=== PATIENT | male | born 1970 | race Caucasian/White ===

== ENCOUNTER 2016-10-21 08:03 | Inpatient (IN) | payer MEDICARE ==
--- NOTE | 2016-10-21 09:10 | XRay Report ---
PORTABLE CHEST INDICATION: Chest pain. COMPARISON: None similar at this institution. FINDINGS: Portable, frontal chest radiograph demonstrates sternotomy wires/post CABG changes and left AICD with dual-chamber leads. Normal cardiomediastinal silhouette. Clear lungs. EKG leads. Intact bones. CONCLUSION: No acute disease, as described. Thank you for the opportunity to participate in this patient's care.
[2016-10-21 09:18] LABS: Eosinophils % (Auto) 3.1 % (0.0-4.3); Hematocrit 43.7 % (35.5-45.6); Hemoglobin 14.8 gm/dl (11.8-15.2); Mean Corpuscular HGB Conc 34 % (32-34); Mean Corpuscular Hemoglobin 32 pg (28-32); Mean Corpuscular Volume 93 fl (84-94); Platelet Count 123 K/mm3 (140-440); Red Blood Count 4.69 M/mm3 (3.65-5.03); Red Cell Distribution Width 13.6 % (13.2-15.2); White Blood Count 4.8 K/mm3 (4.5-11.0)
[2016-10-21 10:04] LABS: Anion Gap 18 mmol/L; BUN/Creatinine Ratio 15.45; Blood Urea Nitrogen 17 mg/dL (9-20); Calcium 8.8 mg/dL (8.4-10.2); Carbon Dioxide 21 mmol/L (22-30); Chloride 102.6 mmol/L (98-107); Glucose 101 mg/dL (75-100); Potassium 3.9 mmol/L (3.6-5.0); Sodium 138 mmol/L (137-145)
[2016-10-21] MEDS ORDERED: ASPIRIN ONE (11:40)
[2016-10-21] MEDS ORDERED: ZOFRAN IV ONE (11:52)
[2016-10-21] MEDS ORDERED: ZOFRAN ONE (11:52)
[2016-10-21] MEDS ORDERED: MORPHINE IV ONE (11:52)
[2016-10-21] MEDS ORDERED: MORPHINE ONE (11:52)
[2016-10-21] MEDS: ASPIRIN PO SCH (11:56)
[2016-10-21] MEDS ORDERED: NITRO-BID 2% TP ONE (11:57)
--- NOTE | 2016-10-21 11:58 | Emergency Department Report ---
HPI - General Chief Complaint: Chest Pain Time Seen by Provider: 10/21/16 09:39 - HPI HPI: History of complaint: Chest pain 46-year-old male presents to ED with chest pain that started last night. Patient states pain is pressure like and radiates to the left on. Patient stated history of coronary artery disease status post stents 7. Patient denies any nausea or vomiting but complains of mild shortness of breath without exertion. Patient denied any alleviating or exacerbating factors. ED Past Medical Hx - Past Medical History Previous Medical History?: Yes Hx Congestive Heart Failure: Yes Hx COPD: Yes - Surgical History Past Surgical History?: Yes Hx Open Heart Surgery: Yes (triple) Hx Internal Defibrillator: Yes Additional Surgical History: L knee - Family History Family history: hypertension - Social History Smoking Status: Current Every Day Smoker Substance Use Type: None ED Review of Systems ROS: Stated complaint: CHEST PAIN Other details as noted in HPI Comment: All other systems reviewed and negative Respiratory: shortness of breath Cardiovascular: chest pain Physical Exam - Physical Exam Vital Signs: Vital Signs 10/21/16 10/21/16 10/21/16 08:13 08:20 08:30 Temperature Pulse Rate 67 62 59 L Respiratory 14 18 15 Rate Blood Pressure 119/79 119/79 O2 Sat by Pulse 99 98 98 Oximetry 10/21/16 10/21/16 10/21/16 08:34 08:40 08:50 Temperature 98.1 F Pulse Rate 64 56 L 69 Respiratory 18 15 19 Rate Blood Pressure 119/79 119/79 119/79 O2 Sat by Pulse 99 98 96 Oximetry 10/21/16 10/21/16 10/21/16 09:00 09:10 09:20 Temperature Pulse Rate 57 L 56 L 53 L Respiratory 13 12 10 L Rate Blood Pressure 110/71 110/71 110/71 O2 Sat by Pulse 95 96 98 Oximetry 10/21/16 10/21/16 10/21/16 09:30 09:40 09:50 Temperature Pulse Rate 52 L 60 57 L Respiratory 14 14 13 Rate Blood Pressure 110/71 110/71 110/71 O2 Sat by Pulse 97 97 96 Oximetry 10/21/16 10/21/16 10/21/16 10:00 10:10 10:20 Temperature Pulse Rate 60 54 L 56 L Respiratory 15 15 15 Rate Blood Pressure 108/70 108/70 108/70 O2 Sat by Pulse 97 97 96 Oximetry 10/21/16 10/21/16 10/21/16 10:30 10:40 10:50 Temperature Pulse Rate 68 63 61 Respiratory 17 14 15 Rate Blood Pressure 108/70 108/70 108/70 O2 Sat by Pulse 95 95 95 Oximetry 10/21/16 10/21/16 11:00 11:13 Temperature Pulse Rate 59 L Respiratory 13 13 Rate Blood Pressure 108/68 O2 Sat by Pulse 95 95 Oximetry Physical Exam: Gen. alert and oriented 3 in no distress Head atraumatic normocephalic Eyes PERR LA EOMI Chest regular rate and rhythm normal S1-S2 lungs clear bilaterally Abdomen soft nondistended Back no point tenderness paravertebral tenderness Neuro no focal deficit. Psych normal mood. ED Course Vital Signs 10/21/16 10/21/16 10/21/16 08:13 08:20 08:30 Temperature Pulse Rate 67 62 59 L Respiratory 14 18 15 Rate Blood Pressure 119/79 119/79 O2 Sat by Pulse 99 98 98 Oximetry 10/21/16 10/21/16 10/21/16 08:34 08:40 08:50 Temperature 98.1 F Pulse Rate 64 56 L 69 Respiratory 18 15 19 Rate Blood Pressure 119/79 119/79 119/79 O2 Sat by Pulse 99 98 96 Oximetry 10/21/16 10/21/16 10/21/16 09:00 09:10 09:20 Temperature Pulse Rate 57 L 56 L 53 L Respiratory 13 12 10 L Rate Blood Pressure 110/71 110/71 110/71 O2 Sat by Pulse 95 96 98 Oximetry 10/21/16 10/21/16 10/21/16 09:30 09:40 09:50 Temperature Pulse Rate 52 L 60 57 L Respiratory 14 14 13 Rate Blood Pressure 110/71 110/71 110/71 O2 Sat by Pulse 97 97 96 Oximetry 10/21/16 10/21/16 10/21/16 10:00 10:10 10:20 Temperature Pulse Rate 60 54 L 56 L Respiratory 15 15 15 Rate Blood Pressure 108/70 108/70 108/70 O2 Sat by Pulse 97 97 96 Oximetry 10/21/16 10/21/16 10/21/16 10:30 10:40 10:50 Temperature Pulse Rate 68 63 61 Respiratory 17 14 15 Rate Blood Pressure 108/70 108/70 108/70 O2 Sat by Pulse 95 95 95 Oximetry 10/21/16 10/21/16 11:00 11:13 Temperature Pulse Rate 59 L Respiratory 13 13 Rate Blood Pressure 108/68 O2 Sat by Pulse 95 95 Oximetry ED Medical Decision Making - Lab Data Result diagrams: 10/21/16 08:54 10/21/16 08:54 Critical care attestation.: If time is entered above; I have spent that time in minutes in the direct care of this critically ill patient, excluding procedure time. ED Disposition Clinical Impression: Chest pain Disposition: OP ADMIT IP TO THIS HOSP Is pt being admited?: Yes Does the pt Need Aspirin: No Condition: Stable Instructions: Chest Pain (ED) Referrals: PRIMARY CARE, [Primary Care Provider] - 3-5 Days
--- NOTE | 2016-10-21 12:33 | Admit Criteria Form ---
Admission Criteria Documentation: CHEST PAIN Clinical Indications for Admission to Inpatient Care (Place 'X' for any and all applicable criteria): Admission is indicated for chest pain and ANY ONE of the following(1)(2)(3)(4)(5 ): [ ]I. Angina with acute coronary syndrome (Also use Myocardial Infarction or Angina guideline) [ ]II. Hemodynamic instability [X ]III. Angina needing acute intervention as indicated by ALL of the following (11)(12): [ ]a) Unstable angina is present as indicated by angina that is ANY ONE of the following: [ ]i) New onset [ ]ii) Nocturnal [ ]iii) Prolonged at rest [ ]iv) Progressive [X]b) Angina warrants acute intervention as indicated by ANY ONE of the following: [ ]i) Recurrent angina (e.g, not responding as previously to treatment) [ ]ii) Angina at rest or with low-level activities despite initial medical therapy [ ]iii) New or presumably new ST-segment depression on ECG [ ]iv) Signs or symptoms of heart failure (eg, dyspnea, pulmonary edema) [ ]v) New or worsening mitral regurgitation [ ]vi) Hemodynamic instability [ ]vii) Dangerous arrhythmia (eg, sustained ventricular tachycardia) [ ]viii) History of percutaneous coronary intervention within 6 months [X]ix) History of coronary artery bypass graft surgery [ ]x) SHIMON risk score of 2 or greater[A] [ ]xi) History of Diabetes(14) [ ]xii) High-risk cardiac ischemia findings on noninvasive testing (e.g, echocardiogram, treadmill testing, nuclear scan) [ ]xiii) Chronic renal insufficiency (ie, estimated GFR less than 60 mL/min/1.732m) [ ]xiv) Left ventricular ejection fraction less than 40% [ ]IV. Evidence of AK (eg, cardiac biomarkers positive, ST-segment elevation on ECG) also use Myocardial Infarction Criteria Form. [ ]V. Pulmonary edema [ ]. Respiratory distress [ ]VII. Chest pain indicative of serious diagnosis other than coronary artery disease (eg, aortic dissection) [ ]VIII. Contraindications and/or Inappropriate clinical situations for Observational Care in patients with Chest Pain, when ANY ONE of the following is required: [ ]a) Patient with risk factor for pulmonary embolism, acute coronary syndrome and myocardial infarction (18) [ ]b) Patient with Pulmonary embolism require an average LOS of 4.3 days, therefore emergency department observation management is inappropriate 18,23 [ ]c) Painful condition/s in the elderly, have the highest rate of recidivism after emergency department observation management (10.8%) 20,21,22 [ ]d) Elevated cardiac biomarker requires intensive and exhaustive care (19) [ ]IX. General contraindications and/or Inappropriate clinical situations for Observational Care in patients with Chest Pain, when ANY ONE of the following is required: [ ]a) Prediction of prolongation of LOS based on ANY ONE of the following may be considered as a contraindication for observational care 2, 3, 4, 5, 6, 7, 8, 9, 10, 11 [ ]i) Age > 65 yrs. [ ]ii) Patient arriving by ambulance [ ]iii) Patient with high acuity [ ]iv) Patient requiring vital sign monitoring [ ]v) Patient on IV medication [ ]b) Systolic blood pressures 180mmHg 3,12 [ ]c) Patient with altered mental status including delirium and other alteration of consciousness, (3) [ ]d) Patient whose discharge disposition will be to a fdc home or rehabilitation home should not be managed in Emergency Department Observation Unit. CMS rule requires 3 days hospital stay before such placement. 3,13 [ ]e) Patient with failure to thrive due to broad array of etiologies 3,16,17 [ ]f) Inability to ambulate 3,14 Extended stay beyond goal length of stay may be needed for (1)(28): [ ]a) Specific condition diagnosed after evaluation (eg, pulmonary embolism, aortic dissection) [ ]b) Unstable angina [ ]c) Continued suspicion of acute coronary syndrome with inability to complete needed cardiac evaluation (eg, patient clinically unable to undergo stress testing) [ ]d) Myocardial infarction (Contents from ANGINA and CHEST PAIN clinical indications for admission to inpatient care have been integrated in this form) The original [facility] content created by [employer] has been revised. The portions of the content which have been revised are identified through the use of italic text or in bold, and [facility] [employer] has neither reviewed nor approved the modified material. All other unmodified content is copyright [facility]. Please see references footnoted in the original [facility] edition 2016 Admission Criteria Met: Yes
--- NOTE | 2016-10-21 12:40 | History and Physical Report ---
History of Present Illness Date of examination: 10/21/16 Chief complaint: Chest pain History of present illness: 46-year-old man with past medical history significant for systolic CHF , COPD, depression, hypertension, hyperlipidemia, CAD status post CABG, multiple stents presented to the emergency department complaining of left-sided chest pain that started 2 days ago. Patient said the pain is sharp, 10 out of 10 in intensity, intermittent, with radiation to the left arm. It is associated with shortness of breath, diaphoresis, palpitation. Patient denied leg swelling, but admitted for dry cough. Patient said he didn't take all his medications for the last 3 days. She said she has been [employer] for the last 4 weeks. Patient said his ejection fraction was 5% and he has a AICD. REVIEW OF SYSTEMS: GENERAL: no weight change, no fatigue, no fever HEAD: no head ache EYES: no blurry vision, no acute visual loss EARS: no hearing loss, no discharge, no earache NOSE: no stuffiness, no sneezing, no discharge MOUTH, THROAT AND NECK: no bleeding gums, no sore throat, no swollen neck CARDIAC: + palpitations, + dyspnea on exertion, no orthopnea, no PND, no edema, + chest pain RESPIRATORY: + shortness of breath, no wheeze, dry cough, no sputum, no hemoptysis, no asthma GI: no decreased appetite, no nausea, no vomiting, no dysphagia, no diarrhea, no constipation, no abdominal pain URINARY: no change in frequency, no urgency, no polyuria, no hematuria, no incontinence MUSCULOSKELETAL: no muscle weakness, no pain, no joint stiffness NEUROLOGIC: no loss of sensation/numbness, no tingling, no tremors, no weakness/ paralysis HEMATOLOGIC: no anemia, no easy bruising SKIN: no rashes ENDOCRINE: no heat/cold intolerance, no polyuria, no polydipsia, no thyroid problems, no diabetes PSYCHIATRIC: no anxiety, + depression, no suicidal ideations Past History Past Medical History: CAD, COPD, heart failure, hypertension Past Surgical History: CABG, total knee replacement Social history: smoking (4 cigaretes a day), full code. denies: alcohol abuse, prescription drug abuse, IV drug use Family history: CAD (father), cancer (mother and brother) Medications and Allergies Allergies Allergy/AdvReac Type Severity Reaction Status Date / Time No Known Allergies Allergy Unverified 10/21/16 08:38 Active Meds: Active Medications Aspirin (Aspirin) 325 mg PO QDAY [facility] Last Admin: 10/21/16 11:56 Dose: Not Given Aspirin (Baby Aspirin) 81 mg PO QDAY [facility] Atorvastatin Calcium (Lipitor) 40 mg PO QHS [facility] Morphine Sulfate (Morphine) 2 mg IV Q4H PRN PRN Reason: Pain, Moderate (4-6) Exam - Physical Exam Narrative exam: Not in cardiopulmonary distress. The patient appeared well nourished and normally developed. Vital signs as documented. Head exam is unremarkable. No scleral icterus . Neck is without jugular venous distension, thyromegaly, or carotid bruits. Lungs are clear to auscultation. Cardiac exam reveals regular rate and Rhythm. Abdominal exam reveals normal bowel sounds, no masses, no organomegaly. Extremities are nonedematous and both femoral and pedal pulses are normal. 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 No focal weakness. - Constitutional Vitals: Temp Pulse Resp BP Pulse Ox 98.1 F 59 L 16 108/68 89 10/21/16 08:34 10/21/16 11:40 10/21/16 11:40 10/21/16 11:40 10/21/16 11:40 Results - Labs CBC & Chem 7: 10/21/16 08:54 10/21/16 08:54 Labs: Laboratory Last Values WBC 4.8 K/mm3 (4.5-11.0) 10/21/16 08:54 RBC 4.69 M/mm3 (3.65-5.03) 10/21/16 08:54 Hgb 14.8 gm/dl (11.8-15.2) 10/21/16 08:54 Hct 43.7 % (35.5-45.6) 10/21/16 08:54 MCV 93 fl (84-94) 10/21/16 08:54 MCH 32 pg (28-32) 10/21/16 08:54 MCHC 34 % (32-34) 10/21/16 08:54 RDW 13.6 % (13.2-15.2) 10/21/16 08:54 Plt Count 123 K/mm3 (140-440) L 10/21/16 08:54 Lymph % (Auto) 11.6 % (13.4-35.0) L 10/21/16 08:54 Major % (Auto) 8.1 % (0.0-7.3) H 10/21/16 08:54 Eos % (Auto) 3.1 % (0.0-4.3) 10/21/16 08:54 Baso % (Auto) 1.0 % (0.0-1.8) 10/21/16 08:54 Lymph # 0.6 K/mm3 (1.2-5.4) L 10/21/16 08:54 Major # 0.4 K/mm3 (0.0-0.8) 10/21/16 08:54 Eos # 0.1 K/mm3 (0.0-0.4) 10/21/16 08:54 Baso # 0.0 K/mm3 (0.0-0.1) 10/21/16 08:54 Seg Neutrophils % 76.2 % (40.0-70.0) H 10/21/16 08:54 Seg Neutrophils # 3.6 K/mm3 (1.8-7.7) 10/21/16 08:54 Sodium 138 mmol/L (137-145) 10/21/16 08:54 Potassium 3.9 mmol/L (3.6-5.0) 10/21/16 08:54 Chloride 102.6 mmol/L (98-107) 10/21/16 08:54 Carbon Dioxide 21 mmol/L (22-30) L 10/21/16 08:54 Anion Gap 18 mmol/L 10/21/16 08:54 BUN 17 mg/dL (9-20) 10/21/16 08:54 Creatinine 1.1 mg/dL (0.8-1.5) 10/21/16 08:54 Estimated GFR > 60 ml/min 10/21/16 08:54 BUN/Creatinine Ratio 15.45 % 10/21/16 08:54 Glucose 101 mg/dL (75-100) H 10/21/16 08:54 Calcium 8.8 mg/dL (8.4-10.2) 10/21/16 08:54 Troponin T < 0.010 ng/mL (0.00-0.029) 10/21/16 08:54 NT-Pro-B Natriuret Pep 1030 pg/mL (0-450) H 10/21/16 08:54 - Imaging and Cardiology EKG: image reviewed (No ST elevation) Chest x-ray: image reviewed (Normal CXR) Assessment and Plan Assessment and plan: Chest pain CAD status post CABG, multiple stents Chronic systolic CHF with ejection fraction of 5 Hypertension Hyperlipidemia COPD - first set of cardiac enzymes are negative will do mores sets - EKG no ST elevation - Cardiology consult placed - We'll resume appropriate medications - Thallium stress test DVT prophylaxis - Lovenox Disposition - Admit to telemetry floor. Advance Directives: Yes VTE prophylaxis?: Chemical Plan of care discussed with patient/family: Yes
[2016-10-21 13:07] LABS: INR 1.01 (0.87-1.13)
[2016-10-21] MEDS: MORPHINE IV PRN ×3 (14:00→21:07)
[2016-10-21] MEDS: LOVENOX SUB-Q SCH (14:11)
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
[2016-10-22] MEDS: MORPHINE IV PRN ×5 (01:19→20:52)
[2016-10-22 05:49] LABS: Hematocrit 47.3 % (35.5-45.6); Hemoglobin 15.6 gm/dl (11.8-15.2); Mean Corpuscular HGB Conc 33 % (32-34); Mean Corpuscular Hemoglobin 31 pg (28-32); Mean Corpuscular Volume 94 fl (84-94); Red Blood Count 5.01 M/mm3 (3.65-5.03); Red Cell Distribution Width 13.8 % (13.2-15.2); White Blood Count 4.4 K/mm3 (4.5-11.0)
[2016-10-22 05:54] LABS: Platelet Count 110 K/mm3 (140-440)
[2016-10-22 06:50] LABS: Basophils % (Manual) 0 % (0.0-1.8); Blastocytes % (Manual) 0 %
[2016-10-22 06:51] LABS: Anisocytosis Few; Diff Status Complete; Giant Platelets Rare; Platelet Estimate Consistent w Auto
[2016-10-22] MEDS ORDERED: LEXISCAN IV ONE ×2 (08:57→09:04)
--- NOTE | 2016-10-22 09:47 | Progress Note ---
Assessment and Plan Assessment: Chest pain, atypical - Nj negative for AMI; CXR with NAF; reproducible with palpation, deep inspiration, and position changes CAD, s/p CABG and PCI ? CMP, AICD in situ Sinus bradycardia HTN HLP COPD Anxiety / depression - per primary Tobacco use - cessation encouraged Plan: s/p lexiscan MPI stress test this AM which was negative for ischemia. Await echo. Cont home ASA, statin, and lasix. Cont to hold home BB in setting of current sinus bradycardia and borderline hypotension. Attempt to obtain medical records from [facility] in [place], [place], where pt reports he has had the majority of his cardiac evaluation and management. The patient has been seen in conjunction with Dr. Claros who agrees with the assessment and plan of care. Subjective Date of service: 10/22/16 Principal diagnosis: chest pain Interval history: Pt seen in stress lab. no complaints. VSS. Objective Last Vital Signs Temp 97.7 F 10/22/16 07:35 Pulse 50 L 10/22/16 07:35 Resp 18 10/22/16 07:35 BP 109/57 10/22/16 07:35 Pulse Ox 94 10/22/16 07:35 - Physical Examination HEENT: Positive: PERRL, Normocephaly, Mucus Membranes Moist Neck: Positive: neck supple, trachea midline Cardiac: Positive: Reg Rate and Rhythm, S1/S2 Lungs: Positive: clear to auscultation Neuro: Positive: Grossly Intact, Cranial Nerve 2-12 Intact Abdomen: Positive: Unremarkable, Soft, Active Bowel Sounds. Negative: Tender Skin: Positive: Clear. 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
[2016-10-22] MEDS: ASPIRIN PO SCH (10:50)
[2016-10-22] MEDS: LOVENOX SUB-Q SCH (10:50)
[2016-10-22] MEDS: LASIX PO SCH (10:50)
--- NOTE | 2016-10-22 14:33 | Progress Note ---
Assessment and Plan Assessment and plan: Patient is a 46-year-old man history of premature coronary artery disease with CABG, hypertension, chronic systolic heart failure with permanent pacemaker, major depressive disorder and COPD who presents with left-sided chest pains. -Left-sided chest pain: Cardiac workup in progress for cardiology -Chronic systolic heart failure, chest x-ray shows no acute findings: Continue present management -Bradycardia: Hold beta blockers -Coronary artery disease with cardiac stents: Aspirin and low-salt diet, restart Plavix -Hypertension related to heart disease: Continue home medicine except beta patricia, closely follow -Patient depressive disorder: Reconcile his home Zoloft and Risperdal -DVT prophylaxis: sq lovenox Full code Disposition: Continue inpatient care, discharge once cleared by cardiology History Interval history: Patient seen and examined. Follow up on current diagnosis/chest pain and left side which is still present. Overnight uneventful. No sob, n/v or severe headaches. Imaging, old records, testing, labs, nursing notes reviewed. Hospitalist Physical - Physical exam Narrative exam: GEN: WDWN, NAD, AWAKE, ALERT, ORIENTATED x 3 HEENT: NCAT, PERRL, EOMI, OP CLEAR NECK: SUPPLE, NO THYROMEGALY, NO JVD, NO LAD CVS: RRR, NORMAL S1S2 LUNGS/CHEST: CTA B, NORMAL CHEST EXPANSION B, GOOD AIR ENTRY B ABD: SOFT, NTND, GBS, NO REBOUND OR GUARDING EXT/SKIN: NO SIGNIFICANT EDEMA OR RASH MSK: FROM X 4 EXTREMITIES NEURO: CN 2-12 GROSSLY INTACT, NO FOCAL DEFICITS PSY: CALM - Constitutional Vitals: Temp Pulse Resp BP Pulse Ox 97.9 F 50 L 18 113/57 98 10/22/16 11:30 10/22/16 11:30 10/22/16 11:30 10/22/16 11:30 10/22/16 11:30 General appearance: Present: no acute distress Results - Labs CBC & Chem 7: 10/22/16 05:08 10/21/16 08:54 Labs: Laboratory Last Values WBC 4.4 K/mm3 (4.5-11.0) L 10/22/16 05:08 RBC 5.01 M/mm3 (3.65-5.03) 10/22/16 05:08 Hgb 15.6 gm/dl (11.8-15.2) H 10/22/16 05:08 Hct 47.3 % (35.5-45.6) H 10/22/16 05:08 MCV 94 fl (84-94) 10/22/16 05:08 MCH 31 pg (28-32) 10/22/16 05:08 MCHC 33 % (32-34) 10/22/16 05:08 RDW 13.8 % (13.2-15.2) 10/22/16 05:08 Plt Count 110 K/mm3 (140-440) L 10/22/16 05:08 Lymph % (Auto) [place] 10/22/16 05:08 [place] % (Auto) Candy Dipper 10/22/16 05:08 Eos % (Auto) [place] 10/22/16 05:08 Baso % (Auto) [place] 10/22/16 05:08 Lymph # [place] 10/22/16 05:08 [place] # Candy Dipper 10/22/16 05:08 Eos # [place] 10/22/16 05:08 Baso # [place] 10/22/16 05:08 Add Manual Diff Complete 10/22/16 05:08 Total Counted 100 10/22/16 05:08 Seg Neutrophils % [place] 10/22/16 05:08 Seg Neuts % (Manual) 70.0 % (40.0-70.0) 10/22/16 05:08 Band Neutrophils % 1.0 % 10/22/16 05:08 Lymphocytes % (Manual) 19.0 % (13.4-35.0) 10/22/16 05:08 Reactive Lymphs % (Man) 0 % 10/22/16 05:08 Monocytes % (Manual) 2.0 % (0.0-7.3) 10/22/16 05:08 Eosinophils % (Manual) 8.0 % (0.0-4.3) H 10/22/16 05:08 Basophils % (Manual) 0 % (0.0-1.8) 10/22/16 05:08 Metamyelocytes % 0 % 10/22/16 05:08 Myelocytes % 0 % 10/22/16 05:08 Promyelocytes % 0 % 10/22/16 05:08 Blast Cells % 0 % 10/22/16 05:08 Nucleated RBC % Not Reportable 10/22/16 05:08 Seg Neutrophils # [place] 10/22/16 05:08 Seg Neutrophils # Man 3.1 K/mm3 (1.8-7.7) 10/22/16 05:08 Band Neutrophils # 0.0 K/mm3 10/22/16 05:08 Lymphocytes # (Manual) 0.8 K/mm3 (1.2-5.4) L 10/22/16 05:08 Abs React Lymphs (Man) 0.0 K/mm3 10/22/16 05:08 Monocytes # (Manual) 0.1 K/mm3 (0.0-0.8) 10/22/16 05:08 Eosinophils # (Manual) 0.4 K/mm3 (0.0-0.4) 10/22/16 05:08 Basophils # (Manual) 0.0 K/mm3 (0.0-0.1) 10/22/16 05:08 Metamyelocytes # 0.0 K/mm3 10/22/16 05:08 Myelocytes # 0.0 K/mm3 10/22/16 05:08 Promyelocytes # 0.0 K/mm3 10/22/16 05:08 Blast Cells # 0.0 K/mm3 10/22/16 05:08 WBC Morphology Not Reportable 10/22/16 05:08 Hypersegmented Neuts Not Reportable 10/22/16 05:08 Hyposegmented Neuts Not Reportable 10/22/16 05:08 Hypogranular Neuts Not Reportable 10/22/16 05:08 Smudge Cells Not Reportable 10/22/16 05:08 Toxic Granulation Not Reportable 10/22/16 05:08 Toxic Vacuolation Not Reportable 10/22/16 05:08 Dohle Bodies Not Reportable 10/22/16 05:08 Pelger-Huet Anomaly Not Reportable 10/22/16 05:08 Saleem Rods Not Reportable 10/22/16 05:08 Platelet Estimate Consistent w auto 10/22/16 05:08 Clumped Platelets Not Reportable 10/22/16 05:08 Plt Clumps, EDTA Not Reportable 10/22/16 05:08 Large Platelets Not Reportable 10/22/16 05:08 Giant Platelets Rare 10/22/16 05:08 Platelet Satelliting Not Reportable 10/22/16 05:08 Plt Morphology Comment Not Reportable 10/22/16 05:08 RBC Morphology Not Reportable 10/22/16 05:08 Dimorphic RBCs Not Reportable 10/22/16 05:08 Polychromasia Not Reportable 10/22/16 05:08 Hypochromasia Not Reportable 10/22/16 05:08 Poikilocytosis Not Reportable 10/22/16 05:08 Anisocytosis Few 10/22/16 05:08 Microcytosis Not Reportable 10/22/16 05:08 Macrocytosis Not Reportable 10/22/16 05:08 Spherocytes Not Reportable 10/22/16 05:08 Pappenheimer Bodies Not Reportable 10/22/16 05:08 Sickle Cells Not Reportable 10/22/16 05:08 Target Cells Not Reportable 10/22/16 05:08 Tear Drop Cells Not Reportable 10/22/16 05:08 Ovalocytes Not Reportable 10/22/16 05:08 Helmet Cells Not Reportable 10/22/16 05:08 [place] Bodies Not Reportable 10/22/16 05:08 [place] Rings Not Reportable 10/22/16 05:08 Goodman Cells Not Reportable 10/22/16 05:08 Bite Cells Not Reportable 10/22/16 05:08 Crenated Cell Not Reportable 10/22/16 05:08 Elliptocytes Not Reportable 10/22/16 05:08 Acanthocytes (Spur) Not Reportable 10/22/16 05:08 Rouleaux Not Reportable 10/22/16 05:08 Hemoglobin C Crystals Not Reportable 10/22/16 05:08 Schistocytes Not Reportable 10/22/16 05:08 Malaria parasites Not Reportable 10/22/16 05:08 Eduardo Bodies Not Reportable 10/22/16 05:08 Hem Pathologist Commnt No 10/22/16 05:08 PT 13.2 Sec. (12.2-14.9) 10/21/16 12:46 INR 1.01 (0.87-1.13) 10/21/16 12:46 Sodium 138 mmol/L (137-145) 10/21/16 08:54 Potassium 3.9 mmol/L (3.6-5.0) 10/21/16 08:54 Chloride 102.6 mmol/L (98-107) 10/21/16 08:54 Carbon Dioxide 21 mmol/L (22-30) L 10/21/16 08:54 Anion Gap 18 mmol/L 10/21/16 08:54 BUN 17 mg/dL (9-20) 10/21/16 08:54 Creatinine 1.1 mg/dL (0.8-1.5) 10/21/16 08:54 Estimated GFR > 60 ml/min 10/21/16 08:54 BUN/Creatinine Ratio 15.45 % 10/21/16 08:54 Glucose 101 mg/dL (75-100) H 10/21/16 08:54 Calcium 8.8 mg/dL (8.4-10.2) 10/21/16 08:54 Troponin T < 0.010 ng/mL (0.00-0.029) 10/21/16 17:18 NT-Pro-B Natriuret Pep 1030 pg/mL (0-450) H 10/21/16 08:54
[2016-10-22] MEDS: ZOLOFT PO SCH (16:30)
[2016-10-22] MEDS: RisperDAL PO SCH (16:31)
[2016-10-22] MEDS: ZESTRIL PO SCH (16:32)
[2016-10-22] MEDS: PLAVIX PO SCH (16:33)
[2016-10-22] MEDS: BABY ASPIRIN PO SCH (20:19)
[2016-10-23] MEDS: MORPHINE IV PRN ×3 (01:14→09:50)
--- NOTE | 2016-10-23 02:36 | Treadmill Report ---
PROCEDURE: Nuclear perfusion study done on 10/22/2016 for chest pain. IMAGING PROTOCOL: The patient received 10 mCi of Technetium 99m Tetrofosmin for resting image and 28 mCi of Technetium 99m Tetrofosmin for stress imaging. The imaging for the whole procedure was completed 30-90 minutes following the initial injection of Technetium 99m tetrofosmin. The SPECT imaging in the 180 degree arc was performed in the right anterior oblique projection. Computerized reconstruction of the images was performed for analysis. IMAGING RESULTS: Cavity is dilated on both stress and rest. Distribution radionuclide is normal in the septal, lateral, inferior and mid anterior region. There is a large absent myocardial perfusion in the anterior apical and apical region seen both stress and rest with no reversibility noted. Gated SPECT, EF of 36% with akinesis in the anterior apical region. The patient infused Lexiscan with no EKG changes. SUMMARY: 1. Negative Lexiscan EKG. 2. The patient has a large infarction in the apical and anterior apical region with no reversibility. No significant stress ischemia noted with a dilated cavity in the LV with akinesis of the apical and anterior apical region with normal perfusion in anterior, septal, lateral and inferior regions. JOB# [id number] SHY/MISHA
[2016-10-23] MEDS: LASIX PO SCH (09:37)
[2016-10-23] MEDS: LOVENOX SUB-Q SCH (09:37)
[2016-10-23] MEDS: BABY ASPIRIN PO SCH (09:37)
[2016-10-23] MEDS: PLAVIX PO SCH (09:38)
[2016-10-23] MEDS: ZESTRIL PO SCH (09:38)
[2016-10-23] MEDS: ZOLOFT PO SCH (09:39)
[2016-10-23] MEDS: RisperDAL PO SCH (09:39)
[2016-10-23] MEDS ORDERED: PROTONIX PO SCH (10:00)
--- NOTE | 2016-10-23 10:42 | Progress Note ---
Assessment and Plan Assessment: Chest pain, atypical - resolved; Nj negative for AMI; CXR with NAF; reproducible with palpation, deep inspiration, and position changes CAD, s/p CABG and PCI CMP, AICD in situ Sinus bradycardia H/o HTN - currently with borderline hypotension HLP COPD Anxiety / depression - per primary Tobacco use - cessation encouraged Plan: S/p lexiscan MPI stress test yesterday which was negative for ischemia. Echo reviewed - LVEF 25 to 30%, Grade 1 diastolic dysfunction, Mild MR, Mild TR. Cont ASA 81, statin, low dose lisinopril, and lasix. No BB at this time in setting of persistent borderline hypotension. May discontinue plavix as there is no current cardiac indication for continuation (last PCI was >4 years ago per pt report). No h/o TIA or CVA either , per pt report. Currently stable cardiac status. Pt may discharge home from cardiology standpoint. Follow up in our [place] office with Jaja Sierra NP, on 11/06/2016 @ 1:00PM. The patient has been seen in conjunction with Dr. Claros who agrees with the assessment and plan of care. Subjective Date of service: 10/23/16 Principal diagnosis: chest pain Interval history: Pt resting comfortably in bed. VSS. no complaints. States he is ready to go home. Objective Last Vital Signs Temp 98.2 F 10/23/16 08:45 Pulse 63 10/23/16 09:38 Resp 18 10/23/16 08:45 BP 103/56 10/23/16 09:38 Pulse Ox 93 10/23/16 08:45 - Physical Examination General: No Apparent Distress HEENT: Positive: PERRL, Normocephaly, Mucus Membranes Moist Neck: Positive: neck supple, trachea midline Cardiac: Positive: S1/S2, Bradycardia Lungs: Positive: clear to auscultation Neuro: Positive: Grossly Intact, Cranial Nerve 2-12 Intact Abdomen: Positive: Unremarkable, Soft, Active Bowel Sounds. Negative: Tender Skin: Positive: Clear. Negative: Rash, Wound Musculoskeletal: No Fluid Collection, No Pain, Normal Range of Motion Extremities: Absent: edema - Imaging and Cardiology EKG: report reviewed, image reviewed Echo: pending - EKG Sinus rhythms and dysrhythmias: sinus rhythm Repolarization changes or abnormalities: ST or T wave suggestive of ischemia
--- NOTE | 2016-10-23 11:17 | Discharge Summary ---
Providers - Providers Date of Admission: 10/21/16 14:24 Date of discharge: 10/23/16 Attending physician: MAZIN QUINTANA Primary care physician: [employer] Hospitalization Condition: Stable Hospital course: Patient is a 46-year-old man history of premature coronary artery disease with CABG, hypertension, chronic systolic heart failure with permanent pacemaker, major depressive disorder and COPD who presents with left-sided chest pains. -Left-sided chest pain, most likely GERD related: Cardiac workup done -Chronic systolic heart failure, chest x-ray shows no acute findings: Continue present management -Bradycardia: Hold beta blockers -Coronary artery disease with cardiac stents: Aspirin and low-salt diet, per Cardiology -Hypertension related to heart disease: Continue home medicine except beta patricia, closely follow -Patient depressive disorder: Reconcile his home Zoloft and Risperdal -DVT prophylaxis: sq lovenox Full code Disposition: Continue inpatient care, discharge once cleared by cardiology per Cardiology: "Chest pain, atypical - resolved; Nj negative for AMI; CXR with NAF; reproducible with palpation, deep inspiration, and position changes CAD, s/p CABG and PCI CMP, AICD in situ Sinus bradycardia H/o HTN - currently with borderline hypotension HLP COPD Anxiety / depression - per primary Tobacco use - cessation encouraged Plan: S/p lexiscan MPI stress test yesterday which was negative for ischemia. Echo reviewed - LVEF 25 to 30%, Grade 1 diastolic dysfunction, Mild MR, Mild TR. Cont ASA 81, statin, low dose lisinopril, and lasix. No BB at this time in setting of persistent borderline hypotension. May discontinue plavix as there is no current cardiac indication for continuation (last PCI was >4 years ago per pt report). No h/o TIA or CVA either , per pt report. Currently stable cardiac status. Pt may discharge home from cardiology standpoint. Follow up in our [place] office with Jaja Sierra NP, on 11/06/2016 @ 1:00PM. " Disposition: TX TO HOME OR SELFCARE Time spent for discharge: 34 minutes Core Measure Documentation - Palliative Care Palliative Care/ Comfort Measures: Not Applicable - Core Measures Any of the following diagnoses?: none - VTE Discharge Requirements Deep Vein Thrombosis/Pulmonary Embolism Present on Admission: No Has pt received <5 days of overlap therapy or INR<2.0: No Anticoagulant overlap therapy prescribed at discharge: No Contraindication No Overlap Therapy order at DC: Not Indicated Exam - Physical Exam Narrative exam: GEN: WDWN, NAD, AWAKE, ALERT, ORIENTATED x 3 HEENT: NCAT, PERRL, EOMI, OP CLEAR NECK: SUPPLE, NO THYROMEGALY, NO JVD, NO LAD CVS: RRR, NORMAL S1S2 LUNGS/CHEST: CTA B, NORMAL CHEST EXPANSION B, GOOD AIR ENTRY B ABD: SOFT, NTND, GBS, NO REBOUND OR GUARDING EXT/SKIN: NO SIGNIFICANT EDEMA OR RASH MSK: FROM X 4 EXTREMITIES NEURO: CN 2-12 GROSSLY INTACT, NO FOCAL DEFICITS PSY: CALM - Constitutional Vitals: Temp Pulse Resp BP Pulse Ox 98.2 F 63 18 103/56 93 10/23/16 08:45 10/23/16 09:38 10/23/16 08:45 10/23/16 09:38 10/23/16 08:45 Plan Activity: other (no strenous activites until cleared by PCP. ) Diet: low salt Follow up with: PRABHAKAR RIVER MD [Primary Care Provider] - 3-5 Days KIERSTEN SCOTT MD [Staff Physician] - 11/06/16 1:00 pm Prescriptions: AtorvaSTATin [Lipitor] 40 mg PO QHS #30 tablet ALBUTEROL Inhaler [ProAir HFA Inhaler] 2 puff IH QID PRN #1 inha PRN Reason: Shortness Of Breath Furosemide [Lasix TAB] 20 mg PO QDAY #30 tablet Lisinopril [Zestril TAB] 2.5 mg PO QDAY #30 tablet Pantoprazole [Protonix TAB] 40 mg PO QDAY #30 tablet
[2016-10-23 13:29] VITALS: BP 105/62
== END 2016-10-23 13:26 | disposition home or self-care (01) | DRG 392 ==
LOC: ED 08:03 → 4A 14:24
PROVIDERS: ADMIT Internal Medicine; ATTEND Internal Medicine
DX: K21.9 Gastro-esophageal reflux disease without esophagitis (principal); I50.22 Chronic systolic (congestive) heart failure; J44.9 Chronic obstructive pulmonary disease, unspecified; E78.5 Hyperlipidemia, unspecified; I25.10 Atherosclerotic heart disease of native coronary artery without angina pectoris; I11.0 Hypertensive heart disease with heart failure; F17.210 Nicotine dependence, cigarettes, uncomplicated; F32.9 Major depressive disorder, single episode, unspecified; R00.1 Bradycardia, unspecified; F41.9 Anxiety disorder, unspecified; I08.1 Rheumatic disorders of both mitral and tricuspid valves; Z95.0 Presence of cardiac pacemaker; Z95.5 Presence of coronary angioplasty implant and graft; Z95.1 Presence of aortocoronary bypass graft; Z82.49 Family history of ischemic heart disease and other diseases of the circulatory system; Z71.6 Tobacco abuse counseling
CPT/HCPCS: 36415; 71010; 78452; 80048; 83880; 84439; 84443; 84484; 85007; 85025; 85610; 93005; 93010; 93017; 93306; 96372; 96374; A9270-GY; A9502; J1650; J2270; J2405; J2785

== ENCOUNTER 2016-10-26 09:17 | Inpatient (IN) | payer MEDICARE ==
--- NOTE | 2016-10-26 10:03 | XRay Report ---
CHEST TWO VIEWS: 10/26/16 09:17:00 CLINICAL: Shortness of breath. COMPARISON: 10/21/16 FINDINGS: Normal heart with pacer leads in heart. Normal pulmonary vessels. The lungs are mildly hyperexpanded and hyperlucent. No airspace disease or pleural effusion. Median sternotomy wires. The bones and soft tissues are normal. IMPRESSION: COPD and no acute change.
[2016-10-26 10:15] LABS: Basophils % (Auto) 0.7 % (0.0-1.8); Eosinophils % (Auto) 2.5 % (0.0-4.3); Hematocrit 41.9 % (35.5-45.6); Hemoglobin 14.6 gm/dl (11.8-15.2); Mean Corpuscular HGB Conc 35 % (32-34); Mean Corpuscular Hemoglobin 32 pg (28-32); Mean Corpuscular Volume 93 fl (84-94); Platelet Count 125 K/mm3 (140-440); Red Blood Count 4.52 M/mm3 (3.65-5.03); Red Cell Distribution Width 13.5 % (13.2-15.2); White Blood Count 5.3 K/mm3 (4.5-11.0)
[2016-10-26 10:24] LABS: INR 0.95 (0.87-1.13)
[2016-10-26 10:25] LABS: Partial Thromboplastin Time 33.5 Sec. (24.2-36.6)
[2016-10-26 10:33] LABS: Anion Gap 20 mmol/L; Blood Urea Nitrogen 14 mg/dL (9-20); Calcium 8.9 mg/dL (8.4-10.2); Carbon Dioxide 17 mmol/L (22-30); Chloride 106.4 mmol/L (98-107); Glucose 95 mg/dL (75-100); Potassium 4.3 mmol/L (3.6-5.0); Sodium 139 mmol/L (137-145)
[2016-10-26] MEDS ORDERED: MORPHINE IV ONE (10:49)
[2016-10-26] MEDS ORDERED: BABY ASPIRIN PO ONE (10:49)
[2016-10-26] MEDS ORDERED: ZOFRAN IV ONE (10:50)
--- NOTE | 2016-10-26 10:54 | Emergency Department Report ---
ED Chest Pain HPI - General Chief Complaint: Dyspnea/Respdistress Stated Complaint: CHF Time Seen by Provider: 10/26/16 10:45 Source: patient Mode of arrival: Ambulatory Limitations: No Limitations - History of Present Illness Initial Comments: Patient is a 46 years old male heavy smoker history of CABG and multiple stents after that complaining of left-sided chest pain shortness of breath he is out of all his medication for the last 7 days. MD Complaint: chest pain -: Gradual Quality: tightness re: nausea, vomting - Related Data Home Medications Medication Instructions Recorded Confirmed Last Taken Sertraline [Zoloft] 100 mg PO QDAY 10/21/16 10/21/16 10/18/16 risperiDONE [RisperDAL] 0.25 mg PO QDAY 10/21/16 10/21/16 10/18/16 Previous Rx's Medication Instructions Recorded Last Taken Type ALBUTEROL Inhaler [ProAir HFA 2 puff IH QID PRN #1 inha 10/23/16 Unknown Rx Inhaler] Aspirin [Adult Low Dose Aspirin EC] 81 mg PO DAILY #30 10/23/16 10/18/16 Rx AtorvaSTATin [Lipitor] 40 mg PO QHS #30 tablet 10/23/16 Unknown Rx Furosemide [Lasix TAB] 20 mg PO QDAY #30 tablet 10/23/16 Unknown Rx Lisinopril [Zestril TAB] 2.5 mg PO QDAY #30 tablet 10/23/16 Unknown Rx Pantoprazole [Protonix TAB] 40 mg PO QDAY #30 tablet 10/23/16 Unknown Rx Allergies Allergy/AdvReac Type Severity Reaction Status Date / Time No Known Allergies Allergy Unverified 10/21/16 08:38 Heart Score - HEART Score History: Highly suspicious EKG: Non-specific Age: 45-65 Risk factors: > 3 risk factors or hx of atherosclerotic disease Troponin: < normal limit HEART Score: 6 - Critical Actions Critical Actions: 4-6 pts:12-16.6% risk of adverse cardiac event. Should be admitted ED Review of Systems ROS: Stated complaint: CHF Other details as noted in HPI Comment: All other systems reviewed and negative Constitutional: denies: chills, fever Respiratory: denies: cough, shortness of breath, SOB with exertion Cardiovascular: chest pain, palpitations, dyspnea on exertion, orthopnea Endocrine: denies: excessive sweating Gastrointestinal: nausea, vomiting. denies: abdominal pain, diarrhea Neurological: denies: headache, weakness, paresthesias ED Past Medical Hx - Past Medical History Previous Medical History?: Yes Hx Congestive Heart Failure: Yes Hx COPD: Yes - Surgical History Past Surgical History?: Yes Hx Open Heart Surgery: Yes (triple) Hx Internal Defibrillator: Yes Additional Surgical History: L knee - Social History Smoking Status: Current Every Day Smoker Substance Use Type: Prescribed - Medications Home Medications: Home Medications Medication Instructions Recorded Confirmed Last Taken Type Sertraline [Zoloft] 100 mg PO QDAY 10/21/16 10/21/16 10/18/16 History risperiDONE [RisperDAL] 0.25 mg PO QDAY 10/21/16 10/21/16 10/18/16 History ALBUTEROL Inhaler [ProAir HFA 2 puff IH QID PRN #1 inha 10/23/16 Unknown Rx Inhaler] Aspirin [Adult Low Dose Aspirin EC] 81 mg PO DAILY #30 10/23/16 10/21/16 Rx AtorvaSTATin [Lipitor] 40 mg PO QHS #30 tablet 10/23/16 Unknown Rx Furosemide [Lasix TAB] 20 mg PO QDAY #30 tablet 10/23/16 Unknown Rx Lisinopril [Zestril TAB] 2.5 mg PO QDAY #30 tablet 10/23/16 Unknown Rx Pantoprazole [Protonix TAB] 40 mg PO QDAY #30 tablet 10/23/16 Unknown Rx ED Physical Exam - General Limitations: No Limitations General appearance: alert, in no apparent distress - Neck Neck exam: Present: normal inspection. Absent: tenderness - Respiratory Respiratory exam: Present: normal lung sounds bilaterally. Absent: respiratory distress, wheezes, rales, rhonchi, stridor, decreased breath sounds, prolonged expiratory - Cardiovascular Cardiovascular Exam: Present: regular rate, normal rhythm, normal heart sounds - GI/Abdominal GI/Abdominal exam: Present: soft. Absent: tenderness, guarding, rebound, normal bowel sounds, hyperactive bowel sounds, hypoactive bowel sounds, mass, pulsatile mass, hernia - Back Exam Back exam: Present: normal inspection. Absent: CVA tenderness (R), CVA tenderness (L) - Neurological Exam Neurological exam: Present: alert, oriented X3, CN II-XII intact - Skin Skin exam: Present: warm, intact, normal color ED Course Vital Signs 10/26/16 09:21 Temperature 98.7 F Pulse Rate 94 H Blood Pressure 119/79 O2 Sat by Pulse 18 L Oximetry - Reevaluation(s) Reevaluation #1: 10/26/16 11:[address] NGUYEN FOR ADMISSION. ED Medical Decision Making - Lab Data Result diagrams: 10/26/16 09:55 10/26/16 09:55 Critical care attestation.: If time is entered above; I have spent that time in minutes in the direct care of this critically ill patient, excluding procedure time. ED Disposition Clinical Impression: Chest pain Disposition: DC-09 OP ADMIT IP TO THIS HOSP Is pt being admited?: Yes Condition: Stable Instructions: Chest Pain (ED)
[2016-10-26] MEDS ORDERED: SODIUM CHLORIDE FLUSH SYRINGE 10 ML IV PRN (12:34)
[2016-10-26] MEDS: LASIX PO SCH (13:15)
[2016-10-26 13:20] LABS: Basophils % (Auto) 2.7 % (0.0-1.8); Eosinophils % (Auto) 2.6 % (0.0-4.3); Hematocrit 39.6 % (35.5-45.6); Hemoglobin 13.7 gm/dl (11.8-15.2); Mean Corpuscular HGB Conc 35 % (32-34); Mean Corpuscular Hemoglobin 32 pg (28-32); Mean Corpuscular Volume 93 fl (84-94); Platelet Count 112 K/mm3 (140-440); Red Blood Count 4.26 M/mm3 (3.65-5.03); Red Cell Distribution Width 13.4 % (13.2-15.2); White Blood Count 5.3 K/mm3 (4.5-11.0)
[2016-10-26] MEDS: ZESTRIL PO SCH (13:30)
[2016-10-26] MEDS: RisperDAL PO SCH (13:30)
[2016-10-26 13:38] LABS: Creatine Kinase MB 1.2 ng/mL (0.0-4.0)
[2016-10-26 13:39] LABS: Alanine Aminotransferase 34 units/L (7-56); Albumin 3.9 g/dL (3.9-5); Albumin/Globulin Ratio 1.3 %; Alkaline Phosphatase 85 units/L (35-129); Anion Gap 18 mmol/L; BUN/Creatinine Ratio 15.55; Blood Urea Nitrogen 14 mg/dL (9-20); Calcium 8.8 mg/dL (8.4-10.2); Carbon Dioxide 19 mmol/L (22-30); Chloride 104.4 mmol/L (98-107); Creatine Kinase 35 units/L (55-170); Glucose 95 mg/dL (75-100); Potassium 4.3 mmol/L (3.6-5.0); Sodium 137 mmol/L (137-145)
--- NOTE | 2016-10-26 13:43 | History and Physical Report ---
History of Present Illness Date of examination: 10/26/16 Date of admission: 10/26/16 Chief complaint: Left-sided chest pain History of present illness: Patient is a 46-year-old gentleman who has a history of coronary artery disease with multiple stents and CABG, CHF, hypertension, major depression disorder and was discharged from this hospital 5 days ago to [facility] where he is being admitted for her depression disorder. Presented to the emergency department today on account of left-sided chest pain. Patient stated it is 10 over 10 in severity, dull in nature. Intermittent initially initially but now constant. Radiation to the neck and shoulder. Associated with shortness of breath and diaphoresis. At emergency department patient was commenced on oxygen nitroglycerin aspirin and morphine. EKG showed ischemic changes, nothing different from previous EKG. ProBNP was 1239. Echocardiogram of 10/21/2016 showed ejection fraction of 25-30%. Patient has an AICD placed. Denies any fever, has cough but was slightly productively. Denies any nausea no vomiting. No chills. Admission was therefore requested Past History Past Medical History: CAD, COPD, hypertension, hyperlipidemia Social history: smoking. denies: alcohol abuse, prescription drug abuse Family history: CAD Medications and Allergies Allergies Allergy/AdvReac Type Severity Reaction Status Date / Time No Known Allergies Allergy Unverified 10/21/16 08:38 Home Medications Medication Instructions Recorded Confirmed Last Taken Type Sertraline [Zoloft] 100 mg PO QDAY 10/21/16 10/21/16 10/18/16 History risperiDONE [RisperDAL] 0.25 mg PO QDAY 10/21/16 10/21/16 10/18/16 History ALBUTEROL Inhaler [ProAir HFA 2 puff IH QID PRN #1 inha 10/23/16 Unknown Rx Inhaler] Aspirin [Adult Low Dose Aspirin EC] 81 mg PO DAILY #30 10/23/16 10/21/16 Rx AtorvaSTATin [Lipitor] 40 mg PO QHS #30 tablet 10/23/16 Unknown Rx Furosemide [Lasix TAB] 20 mg PO QDAY #30 tablet 10/23/16 Unknown Rx Lisinopril [Zestril TAB] 2.5 mg PO QDAY #30 tablet 10/23/16 Unknown Rx Pantoprazole [Protonix TAB] 40 mg PO QDAY #30 tablet 10/23/16 Unknown Rx Active Meds: Active Medications Atorvastatin Calcium (Lipitor) 40 mg PO QHS [facility] Enoxaparin Sodium (Lovenox) 40 mg SUB-Q QDAY [facility] Furosemide (Lasix) 20 mg PO QDAY [facility] Lisinopril (Zestril) 2.5 mg PO QDAY [facility] Morphine Sulfate (Morphine) 2 mg IV Q4H PRN PRN Reason: Chest Pain Risperidone (Risperdal) 0.25 mg PO QDAY [facility] Sertraline HCl (Zoloft) 100 mg PO QDAY [facility] Sodium Chloride (Sodium Chloride Flush Syringe 10 Ml) 10 ml IV PRN PRN PRN Reason: LINE FLUSH Review of systems Constitutional: Well Nouridhed and Well developed. Head: NC/ AT Eyes: Denies any visual impairments. No discharge from the eyes Nose: Denies any rhinorrhea or epistaxis Throats: Denies any post nasal drainage. Ears: Denies any hearing deficits Cardiovascular system: Has chest pain, shortness of breath, orthopnea, paroxysmal nocturnal dyspnea, or palpitation. Respiratory system: Denies any cough, difficulty breathing, wheezing, pleuritic chest pain, Gastrointestinal system: Denies any abdominal pain, nausea vomiting, hematemesis or melena. Neurological system: Denies any headache, slurred speech, facial droop, lateralizing weakness Genitalia system: Denies any dysuria, urinary frequency or urgency, urethral discharge Skin: No rashes, hyperpigmented spots. Hematological: Denies any cervical tenderness hemorrhages or petechia. Immunological: Denies any multiple septic spots, Lymphatic: Denies any generalized lymphadenopathy. Endocrine: Denies any polyuria, polydipsia, polyphagia. No heat or cold intolerance. Musculoskeletal system: No joint pain or swelling. Psych: No visual, tactile, auditory or hallucination Exam - Constitutional Vitals: Temp Pulse Resp BP Pulse Ox 98.7 F 94 H 20 119/79 100 10/26/16 09:21 10/26/16 09:21 10/26/16 12:07 10/26/16 09:21 10/26/16 12:07 General appearance: Present: no acute distress, well-nourished - EENT Eyes: Present: PERRL ENT: hearing intact, clear oral mucosa - Neck Neck: Present: supple, normal ROM - Respiratory Respiratory effort: normal Respiratory: bilateral: CTA - Cardiovascular Heart Sounds: Present: S1 & S2. Absent: rub, click - Extremities Extremities: pulses symmetrical, No edema Peripheral Pulses: within normal limits - Abdominal General gastrointestinal: Present: soft, non-tender, non-distended, normal bowel sounds Male genitourinary: Present: normal - Integumentary Integumentary: Present: clear, warm, dry - Musculoskeletal Musculoskeletal: gait normal, strength equal bilaterally - Psychiatric Psychiatric: appropriate mood/affect, intact judgment & insight - Neurologic Neurologic: CNII-XII intact, moves all extremities Results - Labs CBC & Chem 7: 10/26/16 12:56 10/26/16 09:55 Labs: Abnormal lab results 10/26/16 10/26/16 10/26/16 Range/Units 09:55 09:55 09:55 MCHC 35 H (32-34) % Plt Count 125 L (140-440) K/mm3 Lymph % (Auto) 8.4 L (13.4-35.0) % [place] % (Auto) 10.6 H (0.0-7.3) % Baso % (Auto) (0.0-1.8) % Lymph # 0.4 L (1.2-5.4) K/mm3 Seg Neutrophils % 77.8 H (40.0-70.0) % Carbon Dioxide 17 L (22-30) mmol/L NT-Pro-B Natriuret Pep 1239 H (0-450) pg/mL 10/26/16 Range/Units 12:56 MCHC 35 H (32-34) % Plt Count 112 L (140-440) K/mm3 Lymph % (Auto) 5.7 L (13.4-35.0) % [place] % (Auto) 9.9 H (0.0-7.3) % Baso % (Auto) 2.7 H (0.0-1.8) % Lymph # 0.3 L (1.2-5.4) K/mm3 Seg Neutrophils % 79.1 H (40.0-70.0) % Carbon Dioxide (22-30) mmol/L NT-Pro-B Natriuret Pep (0-450) pg/mL - Imaging and Cardiology EKG: report reviewed Assessment and Plan -Chest pain- likely from coronary artery disease -Coronary artery disease status post CABG -Chronic systolic heart failure status post AICD with ejection fraction of 25-30 % as of September 2016 - Hypertension - Thrombocytopenia - Major depressive disorder Plan Admit to telemetry Commence patient on oxygen nitroglycerin aspirin and morphine, Cardiology consult for patient Continue with diuresis, acei, beta patricia and statin Daily with strict input and output chart, 2 g sodium diet Commence patient on thiamine for thrombocytopenia. Trend to the level Continue patient on antidepressive medication sertraline another anti-psychotic home meds DVT prophylaxis with Lovenox, GI prophylaxis with Pepcid
[2016-10-26] MEDS: LOVENOX SUB-Q SCH (14:36)
[2016-10-26] MEDS: ZOLOFT PO SCH (17:10)
[2016-10-26] MEDS: MORPHINE IV PRN ×2 (17:10→21:17)
[2016-10-26 20:43] LABS: Creatine Kinase MB 1.3 ng/mL (0.0-4.0)
[2016-10-27] MEDS ORDERED: PROAIR IH PRN (01:41)
[2016-10-27] MEDS: MORPHINE IV PRN ×6 (02:24→22:07)
[2016-10-27 02:28] LABS: Creatine Kinase MB < 1.0 ng/mL (0.0-4.0)
[2016-10-27 02:29] LABS: Creatine Kinase 31 units/L (55-170)
[2016-10-27] MEDS: PROVENTIL IH PRN ×2 (02:50→11:35)
[2016-10-27 07:19] LABS: Magnesium 1.9 mg/dL (1.7-2.3); Phosphorous 3.1 mg/dL (2.5-4.5)
[2016-10-27 07:21] LABS: Alanine Aminotransferase 31 units/L (7-56); Albumin 3.3 g/dL (3.9-5); Albumin/Globulin Ratio 1.1 %; Alkaline Phosphatase 81 units/L (35-129); BUN/Creatinine Ratio 16.36; Blood Urea Nitrogen 18 mg/dL (9-20); Carbon Dioxide 21 mmol/L (22-30); Chloride 103.1 mmol/L (98-107); Glucose 112 mg/dL (75-100); Potassium 3.7 mmol/L (3.6-5.0); Sodium 137 mmol/L (137-145); Total Protein 6.4 g/dL (6.3-8.2)
[2016-10-27 07:38] LABS: Anion Gap 17 mmol/L
[2016-10-27 09:23] LABS: Anion Gap 19 mmol/L; BUN/Creatinine Ratio 15.45; Blood Urea Nitrogen 17 mg/dL (9-20); Carbon Dioxide 19 mmol/L (22-30); Chloride 103.4 mmol/L (98-107); Glucose 123 mg/dL (75-100); Sodium 137 mmol/L (137-145)
[2016-10-27] MEDS: RisperDAL PO SCH (09:27)
[2016-10-27] MEDS: LASIX PO SCH (09:27)
[2016-10-27] MEDS: LOVENOX SUB-Q SCH (09:27)
[2016-10-27] MEDS: ZESTRIL PO SCH (09:27)
[2016-10-27] MEDS: ZOLOFT PO SCH (09:27)
--- NOTE | 2016-10-27 10:40 | Consultation ---
History of Present Illness Consult date: 10/27/16 Requesting physician: MAZIN QUINTANA Consult reason: chest pain History of present illness: This is a 46-year-old gentleman psychiatry issues as records hospital for treatment of mental illness. Substance abuse. Patient was in the hospital 10 days ago for chest pain midsternal range of left arm with mild nausea and vomiting patient presents back to the ED after discharge with similar complaints patient states that he's not be getting his medicines over with on exam there is also intermittent chest pain patient was also has chronic pain issues. Patient had shortness of breath. Patient's recent stress echo shows EF 25% with large apical and anterior apical infarction with no ischemia. Patient has no known fever no chills no syncope no palpitations noted chest pain is sharp in nature nonreproducible Past History Past Medical History: CAD, COPD, heart failure (EF 25%), hypertension, hyperlipidemia Past Surgical History: Other (left knee surgery and AICD) Social history: smoking, IV drug use. denies: alcohol abuse, prescription drug abuse Family history: CAD Medications and Allergies Allergies Allergy/AdvReac Type Severity Reaction Status Date / Time No Known Allergies Allergy Unverified 10/21/16 08:38 Home Medications Medication Instructions Recorded Confirmed Last Taken Type Sertraline [Zoloft] 100 mg PO QDAY 10/21/16 10/26/16 1 Day Ago History risperiDONE [RisperDAL] 0.25 mg PO TID 10/21/16 10/26/16 1 Day Ago History ALBUTEROL Inhaler [ProAir HFA 2 puff IH QID PRN #1 inha 10/23/16 10/26/16 Unknown Rx Inhaler] Aspirin [Adult Low Dose Aspirin EC] 81 mg PO DAILY #30 10/23/16 10/26/16 1 Day Ago Rx AtorvaSTATin [Lipitor] 40 mg PO QHS #30 tablet 10/23/16 10/26/16 1 Day Ago Rx Furosemide [Lasix TAB] 20 mg PO QDAY #30 tablet 10/23/16 10/26/16 1 Day Ago Rx Lisinopril [Zestril TAB] 2.5 mg PO QDAY #30 tablet 10/23/16 10/26/16 1 Day Ago Rx Pantoprazole [Protonix TAB] 40 mg PO QDAY #30 tablet 10/23/16 10/26/16 1 Day Ago Rx clonazePAM [KlonoPIN] 2 mg PO QHS 10/26/16 10/26/16 1 Day Ago History traMADol [Ultram 50 MG tab] 50 mg PO TID 10/26/16 10/26/16 3 Days Ago History Active Meds: Active Medications Albuterol (Proventil) 2.5 mg IH Q4HRT PRN PRN Reason: Wheezing Last Admin: 10/27/16 02:50 Dose: 2.5 mg Atorvastatin Calcium (Lipitor) 40 mg PO QHS [facility] Last Admin: 10/26/16 21:17 Dose: 40 mg Enoxaparin Sodium (Lovenox) 40 mg SUB-Q QDAY [facility] Last Admin: 10/27/16 09:27 Dose: 40 mg Furosemide (Lasix) 20 mg PO QDAY [facility] Last Admin: 10/27/16 09:27 Dose: 20 mg Lisinopril (Zestril) 2.5 mg PO QDAY [facility] Last Admin: 10/27/16 09:27 Dose: 2.5 mg Morphine Sulfate (Morphine) 2 mg IV Q4H PRN PRN Reason: Chest Pain Last Admin: 10/27/16 06:38 Dose: 2 mg Risperidone (Risperdal) 0.25 mg PO QDAY [facility] Last Admin: 10/27/16 09:27 Dose: 0.25 mg Sertraline HCl (Zoloft) 100 mg PO QDAY [facility] Last Admin: 10/27/16 09:27 Dose: 100 mg Sodium Chloride (Sodium Chloride Flush Syringe 10 Ml) 10 ml IV PRN PRN PRN Reason: LINE FLUSH Review of Systems All systems: negative (except HPI) Physical Examination Vital Signs Temp Pulse BP Pulse Ox 98.7 F 94 H 119/79 18 L 10/26/16 09:21 10/26/16 09:21 10/26/16 09:21 10/26/16 09:21 General appearance: no acute distress, well-nourished HEENT: Positive: PERRL, Mucus Membranes Moist Neck: Positive: neck supple, trachea midline Cardiac: Positive: Reg Rate and Rhythm, S1/S2. Negative: Audible Murmur Lungs: Positive: clear to auscultation, Normal Breath Sounds Neuro: Positive: Grossly Intact Abdomen: Positive: Soft, Active Bowel Sounds. Negative: Tender, Distended Male genitourinary: Positive: normal Skin: Positive: Clear Incision: Cardiac Cath Site Musculoskeletal: No Pain, Normal Range of Motion Extremities: Present: normal. Absent: edema Results 10/26/16 12:56 10/27/16 12:30 Cardiac Enzymes 10/26/16 10/27/16 10/27/16 Range/Units 17:57 01:24 12:30 AST 20 (5-40) units/L CK-MB (CK-2) 1.3 < 1.0 (0.0-4.0) ng/mL Comprehensive Metabolic Panel 10/27/16 10/27/16 Range/Units 08:44 12:30 Sodium 137 137 (137-145) mmol/L Potassium 4.0 3.7 (3.6-5.0) mmol/L Chloride 103.4 103.1 (98-107) mmol/L Carbon Dioxide 19 L 21 L (22-30) mmol/L BUN 17 18 (9-20) mg/dL Creatinine 1.1 1.1 (0.8-1.5) mg/dL Glucose 123 H 112 H (75-100) mg/dL Calcium 8.0 L 8.0 L (8.4-10.2) mg/dL AST 20 (5-40) units/L ALT 31 (7-56) units/L Alkaline Phosphatase 81 (35-129) units/L Total Protein 6.4 (6.3-8.2) g/dL Albumin 3.3 L (3.9-5) g/dL - Imaging and Cardiology Stress echo: other (10/2016 by cardiac nuclear profusion study reveals large apical and anterior apical infarction EF 30% no ischemia) Echo: report reviewed (10/2016 he of 2530% with mild mitral regurgitation mild tricuspid regurgitation normal RVSP no aortic stenosis noted) EKG interpretations - Telemetry EKG Rhythm: Sinus Rhythm (normal sinus rhythm with old anterior wall NE with deep T-wave inversion in anterolateral leads no change) Assessment and Plan Recurrent chest pain Ischemic cardiomyopathy status post AICD Hypertension Hyperlipidemia Known coronary disease with multiple stents and bypass Recommend reinitiating Imdur and beta patricia and CHF therapy and scheduled for cardiac catheterization and for recurrent chest pain despite medical therapy patient was explained the risk and benefits of procedure patient states understanding patient.
[2016-10-27] MEDS ORDERED: IMDUR PO SCH (11:00)
[2016-10-27] MEDS ORDERED: LOPRESSOR PO SCH (11:00)
[2016-10-27] MEDS ORDERED: NACL 0.9% 500 ML 500 ML IV SCH (11:00)
--- NOTE | 2016-10-27 11:06 | Progress Note ---
Assessment and Plan Assessment and plan: Patient is a 46-year-old man history of premature coronary artery disease with CABG, hypertension, chronic systolic heart failure with ICD, major depressive disorder, substance abuse and COPD who presents with recurrent left-sided chest pains. I discharged him 4 days ago and he returns with recurrent chest pains. Chest x-ray read as COPD and no acute findings. Patient states he had a ICD firing on Friday, will notify Dr. Ibrahim -Recurrent Left-sided chest pain: Cardiology following -Acute exacerbation of COPD: add iv steriods (small dose due to CHF), nebs and antitussive, ABX for the brochitis. -ICD firing on Friday: notified cardiology -Chronic systolic heart failure, chest x-ray shows no acute findings but COPD: Continue present management -Bradycardia: Hold beta blockers -Coronary artery disease with cardiac stents: Aspirin and low-salt diet, per Cardiology -Hypertension related to heart disease: Continue home medicine except beta patricia, closely follow -Patient depressive disorder: Reconcile his home Zoloft and Risperdal -DVT prophylaxis: sq lovenox Full code Disposition: Continue inpatient care Cardiology, Dr. Ibrahim recommends the following:"Recommend reinitiating Imdur and beta patricia and CHF therapy and scheduled for cardiac catheterization and for recurrent chest pain despite medical therapy patient was explained the risk and benefits of procedure patient states understanding patient" History Interval history: Patient seen and examined. Follow up on current diagnosis/chest pains which comes and goes associated with sob and wheezing. Overnight uneventful. No n/v or severe headaches. Imaging, old records, testing, labs, nursing notes reviewed. Hospitalist Physical - Physical exam Narrative exam: GEN: WDWN, NAD, AWAKE, ALERT, ORIENTATED x 3 HEENT: NCAT, PERRL, EOMI, OP CLEAR NECK: SUPPLE, NO THYROMEGALY, NO JVD, NO LAD CVS: RRR, NORMAL S1S2 LUNGS/CHEST: Expiratory wheezing bilaterally, NORMAL CHEST EXPANSION B, GOOD AIR ENTRY B ABD: SOFT, NTND, GBS, NO REBOUND OR GUARDING EXT/SKIN: NO SIGNIFICANT EDEMA OR RASH MSK: FROM X 4 EXTREMITIES NEURO: CN 2-12 GROSSLY INTACT, NO FOCAL DEFICITS PSY: CALM - Constitutional Vitals: Temp Pulse Resp BP Pulse Ox 98.7 F 60 18 110/56 96 10/27/16 08:00 10/27/16 08:00 10/27/16 08:00 10/27/16 08:00 10/27/16 08:00 General appearance: Present: no acute distress, well-nourished Results - Labs CBC & Chem 7: 10/26/16 12:56 10/27/16 12:30 Labs: Laboratory Last Values WBC 5.3 K/mm3 (4.5-11.0) 10/26/16 12:56 RBC 4.26 M/mm3 (3.65-5.03) 10/26/16 12:56 Hgb 13.7 gm/dl (11.8-15.2) 10/26/16 12:56 Hct 39.6 % (35.5-45.6) 10/26/16 12:56 MCV 93 fl (84-94) 10/26/16 12:56 MCH 32 pg (28-32) 10/26/16 12:56 MCHC 35 % (32-34) H 10/26/16 12:56 RDW 13.4 % (13.2-15.2) 10/26/16 12:56 Plt Count 112 K/mm3 (140-440) L 10/26/16 12:56 Lymph % (Auto) 5.7 % (13.4-35.0) L 10/26/16 12:56 [place] % (Auto) 9.9 % (0.0-7.3) H 10/26/16 12:56 Eos % (Auto) 2.6 % (0.0-4.3) 10/26/16 12:56 Baso % (Auto) 2.7 % (0.0-1.8) H 10/26/16 12:56 Lymph # 0.3 K/mm3 (1.2-5.4) L 10/26/16 12:56 [place] # 0.5 K/mm3 (0.0-0.8) 10/26/16 12:56 Eos # 0.1 K/mm3 (0.0-0.4) 10/26/16 12:56 Baso # 0.1 K/mm3 (0.0-0.1) 10/26/16 12:56 Seg Neutrophils % 79.1 % (40.0-70.0) H 10/26/16 12:56 Seg Neutrophils # 4.2 K/mm3 (1.8-7.7) 10/26/16 12:56 PT 13.7 Sec. (12.2-14.9) 10/26/16 12:56 INR 1.00 (0.87-1.13) 10/26/16 12:56 APTT 33.5 Sec. (24.2-36.6) 10/26/16 09:55 Sodium 137 mmol/L (137-145) 10/27/16 12:30 Potassium 3.7 mmol/L (3.6-5.0) 10/27/16 12:30 Chloride 103.1 mmol/L (98-107) 10/27/16 12:30 Carbon Dioxide 21 mmol/L (22-30) L 10/27/16 12:30 Anion Gap 17 mmol/L 10/27/16 12:30 BUN 18 mg/dL (9-20) 10/27/16 12:30 Creatinine 1.1 mg/dL (0.8-1.5) 10/27/16 12:30 Estimated GFR > 60 ml/min 10/27/16 12:30 BUN/Creatinine Ratio 16.36 % 10/27/16 12:30 Glucose 112 mg/dL (75-100) H 10/27/16 12:30 Calcium 8.0 mg/dL (8.4-10.2) L 10/27/16 12:30 Phosphorus 3.10 mg/dL (2.5-4.5) 10/27/16 05:41 Magnesium 1.90 mg/dL (1.7-2.3) 10/27/16 05:41 Total Bilirubin 0.40 mg/dL (0.1-1.2) 10/27/16 12:30 AST 20 units/L (5-40) 10/27/16 12:30 ALT 31 units/L (7-56) 10/27/16 12:30 Alkaline Phosphatase 81 units/L (35-129) 10/27/16 12:30 Total Creatine Kinase 31 units/L (55-170) L 10/27/16 01:24 CK-MB (CK-2) < 1.0 ng/mL (0.0-4.0) 10/27/16 01:24 CK-MB (CK-2) Rel Index 3.2 (0-4) 10/27/16 01:24 Troponin T < 0.010 ng/mL (0.00-0.029) 10/26/16 17:57 NT-Pro-B Natriuret Pep 1239 pg/mL (0-450) H 10/26/16 09:55 Total Protein 6.4 g/dL (6.3-8.2) 10/27/16 12:30 Albumin 3.3 g/dL (3.9-5) L 10/27/16 12:30 Albumin/Globulin Ratio 1.1 % 10/27/16 12:30
[2016-10-27] MEDS: IMDUR PO SCH (11:50)
[2016-10-27] MEDS: LOPRESSOR PO SCH ×2 (11:50→22:09)
[2016-10-27] MEDS: ROCEPHIN/NS 1 GM/50 ML 1 GM/50 ML BAG IV SCH (14:50)
[2016-10-27] MEDS: TESSALON PERLES PO SCH ×2 (14:51→22:07)
[2016-10-27 16:28] LABS: Hematocrit 35.7 % (35.5-45.6); Hemoglobin 12.2 gm/dl (11.8-15.2); Mean Corpuscular HGB Conc 34 % (32-34); Mean Corpuscular Hemoglobin 32 pg (28-32); Mean Corpuscular Volume 94 fl (84-94); Platelet Count 105 K/mm3 (140-440); Red Blood Count 3.82 M/mm3 (3.65-5.03); Red Cell Distribution Width 13.4 % (13.2-15.2); White Blood Count 4.6 K/mm3 (4.5-11.0)
[2016-10-27 17:15] LABS: Basophils % (Manual) 0 % (0.0-1.8); Blastocytes % (Manual) 0 %
[2016-10-27 17:16] LABS: Ovalocytes Few; Platelet Estimate Appears Decreased
[2016-10-27 17:17] LABS: Diff Status Complete
[2016-10-28] MEDS: MORPHINE IV PRN ×2 (02:10→06:07)
[2016-10-28] MEDS: PROVENTIL IH PRN (02:42)
--- NOTE | 2016-10-28 05:26 | Admit Criteria Form ---
Admission Criteria Documentation: CARDIOLOGY GRG Clinical Indications for Admission to Inpatient Care ( Place 'X' for any and all applicable criteria): Hospital admission is needed for appropriate care of the patient because of ANY ONE of the following (1): [ ] I. Hemodynamic instability as indicated by ALL of the following (1)(2)(3) (4)(5) [ ]a) Vital signs or other findings not as expected for chronic patient condition or baseline [ ]b) Instability indicated by ANY ONE of the following: [ ]i) Hypotension [ ]ii) Symptomatic Tachycardia unresponsive to treatment ( e.g., analgesia, fluids, sedation as indicated) [ ]iii) Inadequate perfusion indicated by ANY ONE of the following: [ ] 1) Lactic acidosis (> 2 mmol/L) [ ] 2) New abnormal capillary refill (> 3 seconds) [ ] 3) Reduced urine output [ ] 4) New altered mental status [ ]iv) Orthostatic vital sign changes unresponsive to treatment (e.g., fluids) [ ]v) IV inotropic or vasopressor medication required to maintain adequate blood pressure or perfusion [ ] II. Severe heart failure as indicated by ANY ONE of the following(17)(18) [ ]a) Respiratory distress [ ]b) Hypotension [ ]c) Anasarca (refractory to outpatient therapy) [ ]d) Cardiac arrhythmias of immediate concern [ ]e) Myocardial ischemia [ ] III. Cardiac arrhythmias or findings of immediate concern indicated by ANY ONE of the following (19)(20): [ ] a) Heart rhythms that are inherently dangerous or unstable indicated by ANY ONE of the following (21)(22)(23): [ ] i) Resuscitated ventricular fibrillation or cardiac arrest [ ] ii) Ventricular escape rhythm [ ] iii) Sustained ventricular tachycardia (30 seconds or more of ventricular rhythm at greater than 100 beats per minute) [ ] iv) Nonsustained ventricular tachycardia and ANY ONE of the following: [ ] 1) Suspected cardiac ischemia as cause or consequence of ventricular tachycardia [ ] 2) In setting of acute myocarditis [ ] b) Unstable cardiac conduction defects indicated by ANY ONE of the following(23)(24)(25) [ ] i) Type II second-degree atrioventricular block [ ]ii) Third-degree atrioventricular block [ ]iii) New-onset left bundle branch block with suspected myocardial ischemia [ ]c) Any heart rhythm and ANY ONE of the following (21)(22)(26)(27) (28) [ ] i) Continuous long-term ECG monitoring needed (e.g., initiation of drug requiring monitoring for more than 24 hours) [ ] ii) Patient has automatic implanted cardioverter defibrillator that is repeatedly firing, malfunctioning, or in need of immediate adjustment of settings beyond the scope of ambulatory or observation care [ ]d) Heart rhythms of concern due to ANY ONE of the following: [ ] i) Hypotension [ ] ii) Respiratory distress [ ] iii) Association with other significant symptoms (e.g., bradycardia with syncope or ongoing dizziness, supraventricular tachycardia with chest pain (14)(15)(17) [ ] IV. Monitoring for cardiac contusion beyond the scope of observation care needed [A](30)(31)(32) [ ] V. Surgical or device complication (e.g., valve replacement complication , pacemaker dysfunction) (35)(41)(44)(45)(46) [ ] . Inpatient palliative care needed. [B](49) Also use Inpatient Palliative Care Criteria [ ] VII. Nonbacterial thrombotic (marantic) endocarditis (36)(43)(47)(48) [X] VIII. Cardiology condition, symptom, or finding for which emergency and observation care has failed or are not considered appropriate. [ ] IX. Acute valvular disease requiring inpatient as indicated by ANY ONE of the following (41) [ ]a) Acute valvular regurgitation (42) [ ]b) Noninfectious valvulitis (43) [ ]c) Obstructive valve thrombosis [ ]d) Paravalvular leak [ ]e) Other significant valvular disorder remaining after emergency or observation level of care (as appropriate) [ ]X. Pericardial disease requiring inpatient treatment as indicated by ANY ONE of the following (33)(34)(35)(36)(37) [ ]a) Suspected tamponade (38)(39)(40) [ ]b) Hemopericardium [ ]c) Other significant pericardial disorder remaining after emergency or observation level of care (as appropriate) [ ] XI. Cardiac ischemia beyond scope of emergency and observation care. [ ] XII. Hypertension requiring inpatient treatment as indicated by ANY ONE of the following (6)(7)(8) [ ]a) SBP greater than 220 mm Hg or DBP greater than 120 mmHg despite treatment [ ]b) SBP greater than 140 mm Hg or DBP greater than 100 mm Hg with evidence of acute end organ damage as indicated by ANY ONE of the following [ ] i) Altered mental status [ ] ii) Acute renal failure as indicated by new onset of ANY ONE of the following (9)(10)(11)(12)(13) [ ]1) 3-fold rise in serum creatinine from baseline [ ]2) Serum creatinine greater than 4 mg/dL ( 354 micromoles/L) with acute rise greater than 0.5 mg/dL (44.2 micromoles/L) [ ]3) Reduction of more than 75% in estimated glomerular filtration rate from baseline [ ]4) Estimated glomerular filtration rate less than 35 mL/min/1.73m2 (0.59 mL/sec/1.73m2) in child up to 18 years of age [ ]5) Cessation of urine output indicated by ALL of the following [ ]A. Adequate volume status [ ]B. Inadequate urine output as indicated by ANY ONE of the following [ ]a. Urine output less than 0.3 mL/kg/hr for 24 hours [ ]b. Anuria (urine output less than 0.1 mL/kg/hr) for 12 hours [ ] iii) Aortic dissection [ ] iv) Myocardial Ischemia [ ] v) Left ventricular heart failure [ ]vi) Retinal Hemorrhage [ ]vii) Other significant finding [ ]c) Hypertension in child requiring inpatient treatment as indicated by ALL of the following(14)(15)(16) [ ] i) Outpatient treatment not effective, not available, or not appropriate [ ]ii) SBP or DBP greater than 95th percentile for age [ ]iii) Evidence of acute end organ damage as indicated by ANY ONE of the following [ ]1) Altered mental status [ ]2) Acute renal failure as indicated by new onset of ANY ONE of the following(9)(10)(11)(12)(13) [ ]A. 3-fold rise in serum creatinine from baseline [ ]B. Serum creatinine greater than 4 mg/dL (354 micromoles/L) with acute rise greater than 0.5 mg/dL (44.2 micromoles/L) [ ]C. Reduction of more than 75% in estimated glomerular filtration rate from baseline [ ]D. Estimated glomerular filtration rate less than 35 mL/min/1.73m2 (0.59 mL/sec/1.73m2) in child up to 18 years of age [ ]E. Cessation of urine output indicated by ALL of the following [ ]a. Adequate volume status [ ]b. Inadequate urine output as indicated by ANY ONE of the following [ ]i) Urine output less than 0.3 mL/kg/hr for 24 hours [ ]ii) Anuria ( urine output less than 0.1 mL/kg/hr) for 12 hours [ ]3) Severe headache [ ]4) Visual disturbance [ ]5) Retinal hemorrhage [ ]6) Other significant finding [ ]XIII. Complications of transplanted heart indicated by ANY ONE of the following(61): [ ]a) Acute graft rejection requiring inpatient management (eg, intravenous immunosuppression)(62)(63) [ ]b) Acute graft heart failure indicated by ANY ONE of the following(64): [ ]i) Hemodynamic instability [ ]ii) Cardiac arrhythmias of immediate concern [ ]iii) Pulmonary edema that is very severe (eg, mechanical ventilation needed, imminent or likely, need for 100% oxygen to keep oxygen saturation above 90%) [ ]iv) Pulmonary edema that is persistent as indicated by ALL of the following: [ ]1) New need for oxygen therapy to keep oxygen saturation above 90% (or increased FiO2 need from baseline) [ ]2) Has not improved sufficiently with emergency department or observation care IV diuretics or other heart failure treatments[E] [ ]v) Altered mental status that is severe or persistent [ ]vi) Increased creatinine (new on laboratory test) with reduction of more than 50% in estimated glomerular filtration rate from baseline [ ]vii) Progressively (ongoing) rising creatinine (known from past laboratory test) with reduction of more than 25% in estimated glomerular filtration rate from baseline [ ]viii) Acute renal failure [ ]ix) Acute peripheral ischemia (eg, examination shows pulseless, cool, mottled, or cyanotic extremity) [ ]x) Pulmonary artery catheter monitoring needed [ ]xi) Other sign or symptom of heart failure requiring inpatient treatment (ie, too severe or not responsive to outpatient and observation care treatment) [ ]c) Infection requiring inpatient management (eg, Hemodynamic instability, need for intravenous antimicrobial treatment)(66)(67)(68)(69)(70) [ ]d) Cardiac allograft vasculopathy requiring inpatient management ( eg evidence of cardiac ischemia)(71) [ ]e) Other complication of transplanted heart (eg, stroke, severe pulmonary hypertension, severe valvular dysfunction) requiring inpatient management(72) The original [facility] [employer] content created by [facility] [employer] has been revised. The portions of the content which have been revised are identified through the use of italic text or in bold, and [facility] has neither reviewed nor approved the modified material. All other unmodified content is copyright [facility] [employer]. Please see references footnoted in the original [facility] [employer] edition 2016 Admission Criteria Met: Yes
[2016-10-28] MEDS: TESSALON PERLES PO SCH (06:07)
[2016-10-28 06:08] LABS: Hematocrit 37.2 % (35.5-45.6); Hemoglobin 12.7 gm/dl (11.8-15.2); Mean Corpuscular HGB Conc 34 % (32-34); Mean Corpuscular Hemoglobin 32 pg (28-32); Mean Corpuscular Volume 93 fl (84-94); Red Cell Distribution Width 13.5 % (13.2-15.2); White Blood Count 4.5 K/mm3 (4.5-11.0)
[2016-10-28 06:14] LABS: Platelet Count 99 K/mm3 (140-440)
[2016-10-28 06:20] LABS: Anion Gap 16 mmol/L; Blood Urea Nitrogen 12 mg/dL (9-20); Calcium 8.1 mg/dL (8.4-10.2); Carbon Dioxide 22 mmol/L (22-30); Chloride 104.8 mmol/L (98-107); Glucose 98 mg/dL (75-100); Potassium 3.9 mmol/L (3.6-5.0); Sodium 139 mmol/L (137-145)
[2016-10-28 06:22] LABS: Partial Thromboplastin Time 35.4 Sec. (24.2-36.6)
[2016-10-28] MEDS ORDERED: HEPARIN/NS 5000 UNIT/500ML(CATH LAB) 1,000 ML IR ONE (08:13)
[2016-10-28] MEDS ORDERED: CALAN ONE (08:13)
[2016-10-28] MEDS ORDERED: XYLOCAINE 2% INFILTRATI ONE (08:13)
[2016-10-28] MEDS ORDERED: HEPARIN 10,000 UNITS/10 ML ONE (08:13)
[2016-10-28] MEDS ORDERED: NITROGLYCERIN SYRINGE 0 ML ONE (08:14)
[2016-10-28] MEDS ORDERED: SUBLIMAZE ONE (08:15)
[2016-10-28] MEDS ORDERED: VERSED ONE (08:15)
[2016-10-28] MEDS ORDERED: NACL 0.9% 500 ML 500 ML ONE (08:54)
--- NOTE | 2016-10-28 09:20 | Progress Note ---
<GILMER SAHU CARMELO - Last Filed: 10/28/16 09:21> Assessment and Plan Assessment: Chest pain, atypical - ECG with NAF; Nj negative for AMI; s/p negative lexiscan MPI last week. ? AICD discharge CAD, s/p CABG and PCI ICMP, AICD in situ - EF 25-30% Sinus bradycardia H/o HTN - currently with borderline hypotension HLP COPD Anxiety / depression - per primary Tobacco use - cessation encouraged Plan: Proceed with [facility] this AM. Await findings. Plan for device interrogation following [facility]. The patient has been seen in conjunction with Dr. Madison who agrees with the assessment and plan of care. 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 denies any complaints. VSS. Objective Last Vital Signs Temp 98.0 F 10/28/16 05:43 Pulse 60 10/28/16 05:43 Resp 19 10/28/16 06:07 BP 101/55 10/28/16 05:43 Pulse Ox 96 10/28/16 05:43 - Physical Examination HEENT: Positive: PERRL, Mucus Membranes Moist Neck: Positive: neck supple, trachea midline Cardiac: Positive: Reg Rate and Rhythm, S1/S2 Lungs: Positive: clear to auscultation Neuro: Positive: Grossly Intact Abdomen: Positive: Soft, Active Bowel Sounds. Negative: Tender, Distended Skin: Positive: Clear Incision: Cardiac Cath Site Musculoskeletal: No Pain, Normal Range of Motion Extremities: Present: normal. Absent: edema - Labs and Meds Coagulation 10/28/16 Range/Units 04:45 PT 13.7 (12.2-14.9) Sec. INR 1.00 (0.87-1.13) APTT 35.4 (24.2-36.6) Sec. CBC 10/27/16 10/28/16 Range/Units 15:51 04:00 WBC 4.6 4.5 (4.5-11.0) K/mm3 RBC 3.82 4.00 (3.65-5.03) M/mm3 Hgb 12.2 12.7 (11.8-15.2) gm/dl Hct 35.7 37.2 (35.5-45.6) % Plt Count 105 L 99 L (140-440) K/mm3 Comprehensive Metabolic Panel 10/27/16 10/28/16 Range/Units 08:44 04:00 Sodium 137 139 (137-145) mmol/L Potassium 4.0 3.9 (3.6-5.0) mmol/L Chloride 103.4 104.8 (98-107) mmol/L Carbon Dioxide 19 L 22 (22-30) mmol/L BUN 17 12 (9-20) mg/dL Creatinine 1.1 1.1 (0.8-1.5) mg/dL Glucose 123 H 98 (75-100) mg/dL Calcium 8.0 L 8.1 L (8.4-10.2) mg/dL - Imaging and Cardiology EKG: report reviewed Stress echo: other (10/2016 by cardiac nuclear profusion study reveals large apical and anterior apical infarction EF 30% no ischemia) Echo: report reviewed (10/2016 he of 2530% with mild mitral regurgitation mild tricuspid regurgitation normal RVSP no aortic stenosis noted) <DAMIEN MADISON R - Last Filed: 10/28/16 09:56> Objective Vital Signs Temp Pulse Pulse Pulse Resp Resp Resp 10/28/16 06:07 19 10/28/16 05:43 98.0 F 60 18 10/28/16 02:40 18 10/28/16 02:25 51 L 20 10/28/16 02:15 63 20 10/28/16 02:10 18 10/28/16 00:55 98.3 F 65 18 10/27/16 22:37 18 10/27/16 22:09 62 10/27/16 22:07 19 10/27/16 22:00 60 18 10/27/16 21:18 10/27/16 20:59 98.4 F 62 16 10/27/16 20:44 18 10/27/16 20:05 60 10/27/16 18:50 18 10/27/16 17:30 98.4 F 60 18 10/27/16 12:30 98.5 F 82 18 10/27/16 11:45 65 18 10/27/16 11:35 68 18 10/27/16 10:00 BP Pulse Ox 10/28/16 06:07 10/28/16 05:43 101/55 96 10/28/16 02:40 10/28/16 02:25 08/07/17 02:15 10/28/16 02:10 10/28/16 00:55 106/62 97 10/27/16 22:37 10/27/16 22:09 101/59 10/27/16 22:07 10/27/16 22:00 10/27/16 21:18 96 10/27/16 20:59 101/59 96 10/27/16 20:44 10/27/16 20:05 10/27/16 18:50 10/27/16 17:30 82/50 97 10/27/16 12:30 101/53 98 10/27/16 11:45 10/27/16 11:35 10/27/16 10:00 96 - Labs and Meds Coagulation 10/28/16 Range/Units 04:45 PT 13.7 (12.2-14.9) Sec. INR 1.00 (0.87-1.13) APTT 35.4 (24.2-36.6) Sec. CBC 10/27/16 10/28/16 Range/Units 15:51 04:00 WBC 4.6 4.5 (4.5-11.0) K/mm3 RBC 3.82 4.00 (3.65-5.03) M/mm3 Hgb 12.2 12.7 (11.8-15.2) gm/dl Hct 35.7 37.2 (35.5-45.6) % Plt Count 105 L 99 L (140-440) K/mm3 Comprehensive Metabolic Panel 10/28/16 Range/Units 04:00 Sodium 139 (137-145) mmol/L Potassium 3.9 (3.6-5.0) mmol/L Chloride 104.8 (98-107) mmol/L Carbon Dioxide 22 (22-30) mmol/L BUN 12 (9-20) mg/dL Creatinine 1.1 (0.8-1.5) mg/dL Glucose 98 (75-100) mg/dL Calcium 8.1 L (8.4-10.2) mg/dL
--- NOTE | 2016-10-28 11:25 | Event Note ---
Date: 10/28/16 pt s/p LHC via right femoral artery - LHC showed severe stenosis of OSEGUERA to LAD graft. Transfer to tertiary care facility for high-risk intervention recommended. Dr. Madison currently arranging transfer. Nico SAHU NP / DR. MADISON
[2016-10-28] MEDS: IMDUR PO SCH (12:38)
[2016-10-28] MEDS: LASIX PO SCH (12:38)
[2016-10-28] MEDS: LOPRESSOR PO SCH (12:39)
[2016-10-28] MEDS: ZESTRIL PO SCH (12:39)
[2016-10-28] MEDS: ZOLOFT PO SCH (12:39)
[2016-10-28] MEDS: ROCEPHIN/NS 1 GM/50 ML 1 GM/50 ML BAG IV SCH (12:39)
[2016-10-28] MEDS: LOVENOX SUB-Q SCH (12:39)
[2016-10-28] MEDS: RisperDAL PO SCH (12:39)
--- NOTE | 2016-10-28 13:24 | Progress Note ---
Assessment and Plan Assessment and plan: Patient is a 46-year-old man history of premature coronary artery disease with CABG, hypertension, chronic systolic heart failure with ICD, major depressive disorder, substance abuse and COPD who presents with recurrent left-sided chest pains. I discharged him 4 days ago and he returns with recurrent chest pains. Chest x-ray read as COPD and no acute findings. Patient states he had a ICD firing on Friday, will notify Dr. Ibrahim -Recurrent Left-sided chest pain: Cardiology following -Acute exacerbation of COPD: add iv steriods (small dose due to CHF), nebs and antitussive, ABX for the brochitis. -ICD firing on Friday: notified cardiology -Chronic systolic heart failure, chest x-ray shows no acute findings but COPD: Continue present management -Bradycardia: Hold beta blockers -Coronary artery disease with cardiac stents: Aspirin and low-salt diet, per Cardiology -Hypertension related to heart disease: Continue home medicine except beta patricia, closely follow -Patient depressive disorder: Reconcile his home Zoloft and Risperdal -DVT prophylaxis: sq lovenox Full code Disposition: Continue inpatient care Cardiology, Dr. Ibrahim recommends the following:"Recommend reinitiating Imdur and beta patricia and CHF therapy and scheduled for cardiac catheterization and for recurrent chest pain despite medical therapy patient was explained the risk and benefits of procedure patient states understanding patient" 10/28/16: s/p Cardiac cath==>"Date: 10/28/16, pt s/p LHC via right femoral artery - LHC showed severe stenosis of OSEGUERA to LAD graft. Transfer to tertiary care facility for high-risk intervention recommended. Dr. Hopkins currently arranging transfer. Nico SAHU NP / DR. HOPKINS". I did d/w Dr. Hopkins. History Interval history: Patient seen and examined. Follow up on current diagnosis/chest pains which comes and goes associated with sob and wheezing. Overnight uneventful. No n/v or severe headaches. Imaging, old records, testing, labs, nursing notes reviewed. Hospitalist Physical - Physical exam Narrative exam: GEN: WDWN, NAD, AWAKE, ALERT, ORIENTATED x 3 HEENT: NCAT, PERRL, EOMI, OP CLEAR NECK: SUPPLE, NO THYROMEGALY, NO JVD, NO LAD CVS: RRR, NORMAL S1S2 LUNGS/CHEST: Expiratory wheezing bilaterally, NORMAL CHEST EXPANSION B, GOOD AIR ENTRY B ABD: SOFT, NTND, GBS, NO REBOUND OR GUARDING EXT/SKIN: NO SIGNIFICANT EDEMA OR RASH MSK: FROM X 4 EXTREMITIES NEURO: CN 2-12 GROSSLY INTACT, NO FOCAL DEFICITS PSY: CALM - Constitutional Vitals: Temp Pulse Resp BP Pulse Ox 98.0 F 53 L 19 101/55 98 10/28/16 05:43 10/28/16 10:00 10/28/16 06:07 10/28/16 05:43 10/28/16 10:00 General appearance: Present: no acute distress, well-nourished Results - Labs CBC & Chem 7: 10/28/16 04:00 10/28/16 04:00 Labs: Laboratory Last Values WBC 4.5 K/mm3 (4.5-11.0) 10/28/16 04:00 RBC 4.00 M/mm3 (3.65-5.03) 10/28/16 04:00 Hgb 12.7 gm/dl (11.8-15.2) 10/28/16 04:00 Hct 37.2 % (35.5-45.6) 10/28/16 04:00 MCV 93 fl (84-94) 10/28/16 04:00 MCH 32 pg (28-32) 10/28/16 04:00 MCHC 34 % (32-34) 10/28/16 04:00 RDW 13.5 % (13.2-15.2) 10/28/16 04:00 Plt Count 99 K/mm3 (140-440) L 10/28/16 04:00 Lymph % (Auto) 5.7 % (13.4-35.0) L 10/26/16 12:56 [place] % (Auto) [employer] 10/27/16 15:51 Eos % (Auto) 2.6 % (0.0-4.3) 10/26/16 12:56 Baso % (Auto) 2.7 % (0.0-1.8) H 10/26/16 12:56 Lymph # 0.3 K/mm3 (1.2-5.4) L 10/26/16 12:56 [place] # 0.5 K/mm3 (0.0-0.8) 10/26/16 12:56 Eos # 0.1 K/mm3 (0.0-0.4) 10/26/16 12:56 Baso # 0.1 K/mm3 (0.0-0.1) 10/26/16 12:56 Add Manual Diff Complete 10/27/16 15:51 Total Counted 100 10/27/16 15:51 Seg Neutrophils % 79.1 % (40.0-70.0) H 10/26/16 12:56 Seg Neuts % (Manual) 74.0 % (40.0-70.0) H 10/27/16 15:51 Band Neutrophils % 1.0 % 10/27/16 15:51 Lymphocytes % (Manual) 11.0 % (13.4-35.0) L 10/27/16 15:51 Reactive Lymphs % (Man) 0 % 10/27/16 15:51 Monocytes % (Manual) 6.0 % (0.0-7.3) 10/27/16 15:51 Eosinophils % (Manual) 8.0 % (0.0-4.3) H 10/27/16 15:51 Basophils % (Manual) 0 % (0.0-1.8) 10/27/16 15:51 Metamyelocytes % 0 % 10/27/16 15:51 Myelocytes % 0 % 10/27/16 15:51 Promyelocytes % 0 % 10/27/16 15:51 Blast Cells % 0 % 10/27/16 15:51 Nucleated RBC % Not Reportable 10/27/16 15:51 Seg Neutrophils # 4.2 K/mm3 (1.8-7.7) 10/26/16 12:56 Seg Neutrophils # Man 3.4 K/mm3 (1.8-7.7) 10/27/16 15:51 Band Neutrophils # 0.0 K/mm3 10/27/16 15:51 Lymphocytes # (Manual) 0.5 K/mm3 (1.2-5.4) L 10/27/16 15:51 Abs React Lymphs (Man) 0.0 K/mm3 10/27/16 15:51 Monocytes # (Manual) 0.3 K/mm3 (0.0-0.8) 10/27/16 15:51 Eosinophils # (Manual) 0.4 K/mm3 (0.0-0.4) 10/27/16 15:51 Basophils # (Manual) 0.0 K/mm3 (0.0-0.1) 10/27/16 15:51 Metamyelocytes # 0.0 K/mm3 10/27/16 15:51 Myelocytes # 0.0 K/mm3 10/27/16 15:51 Promyelocytes # 0.0 K/mm3 10/27/16 15:51 Blast Cells # 0.0 K/mm3 10/27/16 15:51 WBC Morphology Not Reportable 10/27/16 15:51 Hypersegmented Neuts Not Reportable 10/27/16 15:51 Hyposegmented Neuts Not Reportable 10/27/16 15:51 Hypogranular Neuts Not Reportable 10/27/16 15:51 Smudge Cells Not Reportable 10/27/16 15:51 Toxic Granulation Not Reportable 10/27/16 15:51 Toxic Vacuolation Not Reportable 10/27/16 15:51 Dohle Bodies Not Reportable 10/27/16 15:51 Pelger-Huet Anomaly Not Reportable 10/27/16 15:51 Saleem Rods Not Reportable 10/27/16 15:51 Platelet Estimate Appears decreased 10/27/16 15:51 Clumped Platelets Not Reportable 10/27/16 15:51 Plt Clumps, EDTA Not Reportable 10/27/16 15:51 Large Platelets Not Reportable 10/27/16 15:51 Giant Platelets Not Reportable 10/27/16 15:51 Platelet Satelliting Not Reportable 10/27/16 15:51 Plt Morphology Comment Not Reportable 10/27/16 15:51 RBC Morphology Not Reportable 10/27/16 15:51 Dimorphic RBCs Not Reportable 10/27/16 15:51 Polychromasia Not Reportable 10/27/16 15:51 Hypochromasia Not Reportable 10/27/16 15:51 Poikilocytosis Not Reportable 10/27/16 15:51 Anisocytosis Not Reportable 10/27/16 15:51 Microcytosis Not Reportable 10/27/16 15:51 Macrocytosis Not Reportable 10/27/16 15:51 Spherocytes Not Reportable 10/27/16 15:51 Pappenheimer Bodies Not Reportable 10/27/16 15:51 Sickle Cells Not Reportable 10/27/16 15:51 Target Cells Not Reportable 10/27/16 15:51 Tear Drop Cells Not Reportable 10/27/16 15:51 Ovalocytes Few 10/27/16 15:51 Helmet Cells Not Reportable 10/27/16 15:51 Terrell-Driggs Bodies Not Reportable 10/27/16 15:51 [place] Rings Not Reportable 10/27/16 15:51 Bland Cells Not Reportable 10/27/16 15:51 Bite Cells Not Reportable 10/27/16 15:51 Crenated Cell Not Reportable 10/27/16 15:51 Elliptocytes Not Reportable 10/27/16 15:51 Acanthocytes (Spur) Not Reportable 10/27/16 15:51 Rouleaux Not Reportable 10/27/16 15:51 Hemoglobin C Crystals Not Reportable 10/27/16 15:51 Schistocytes Not Reportable 10/27/16 15:51 Malaria parasites Not Reportable 10/27/16 15:51 Eduardo Bodies Not Reportable 10/27/16 15:51 Hem Pathologist Commnt No 10/27/16 15:51 PT 13.7 Sec. (12.2-14.9) 10/28/16 04:45 INR 1.00 (0.87-1.13) 10/28/16 04:45 APTT 35.4 Sec. (24.2-36.6) 10/28/16 04:45 Sodium 139 mmol/L (137-145) 10/28/16 04:00 Potassium 3.9 mmol/L (3.6-5.0) 10/28/16 04:00 Chloride 104.8 mmol/L (98-107) 10/28/16 04:00 Carbon Dioxide 22 mmol/L (22-30) 10/28/16 04:00 Anion Gap 16 mmol/L 10/28/16 04:00 BUN 12 mg/dL (9-20) 10/28/16 04:00 Creatinine 1.1 mg/dL (0.8-1.5) 10/28/16 04:00 Estimated GFR > 60 ml/min 10/28/16 04:00 BUN/Creatinine Ratio 10.90 % 10/28/16 04:00 Glucose 98 mg/dL (75-100) 10/28/16 04:00 Calcium 8.1 mg/dL (8.4-10.2) L 10/28/16 04:00 Phosphorus 3.10 mg/dL (2.5-4.5) 10/27/16 05:41 Magnesium 2.00 mg/dL (1.7-2.3) 10/28/16 04:00 Total Bilirubin 0.40 mg/dL (0.1-1.2) 10/27/16 12:30 AST 20 units/L (5-40) 10/27/16 12:30 ALT 31 units/L (7-56) 10/27/16 12:30 Alkaline Phosphatase 81 units/L (35-129) 10/27/16 12:30 Total Creatine Kinase 31 units/L (55-170) L 10/27/16 01:24 CK-MB (CK-2) < 1.0 ng/mL (0.0-4.0) 10/27/16 01:24 CK-MB (CK-2) Rel Index 3.2 (0-4) 10/27/16 01:24 Troponin T < 0.010 ng/mL (0.00-0.029) 10/26/16 17:57 NT-Pro-B Natriuret Pep 1239 pg/mL (0-450) H 10/26/16 09:55 Total Protein 6.4 g/dL (6.3-8.2) 10/27/16 12:30 Albumin 3.3 g/dL (3.9-5) L 10/27/16 12:30 Albumin/Globulin Ratio 1.1 % 10/27/16 12:30
--- NOTE | 2016-10-28 13:28 | Discharge Summary ---
Providers - Providers Date of Admission: 10/26/16 13:53 Date of discharge: 10/28/16 Attending physician: MAZIN QUINTANA 10/28/16 10:07 Consult to Cardiac Rehabilitation [CONS] Routine Reason For Exam: Cardiac Rehab Evaluation Primary care physician: FORMULA WEIGHER Hospitalization Condition: Stable Hospital course: Patient is a 46-year-old man history of premature coronary artery disease with CABG, hypertension, chronic systolic heart failure with ICD, major depressive disorder, substance abuse and COPD who presents with recurrent left-sided chest pains. I discharged him 4 days ago and he returned with recurrent chest pains. Chest x-ray read as COPD and no acute findings. Patient states his ICD fired on Friday, notified cardiology, Dr. Ibrahim -Recurrent Left-sided chest pain due to CAD with angina: Cardiology following -Acute exacerbation of COPD: add iv steriods (small dose due to CHF), nebs and antitussive, ABX for the brochitis. -ICD firing on Friday: notified cardiology -Chronic systolic heart failure, chest x-ray shows no acute findings but COPD: Continue present management -Bradycardia: Hold beta blockers -Coronary artery disease with cardiac stents: Aspirin and low-salt diet, per Cardiology -Hypertension related to heart disease: Continue home medicine except beta patricia, closely follow -Patient depressive disorder: Reconcile his home Zoloft and Risperdal -DVT prophylaxis: sq lovenox Full code Disposition: Continue inpatient care Cardiology, Dr. Ibrahim recommends the following:"Recommend reinitiating Imdur and beta patricia and CHF therapy and scheduled for cardiac catheterization and for recurrent chest pain despite medical therapy patient was explained the risk and benefits of procedure patient states understanding patient" 10/28/16: s/p Cardiac cath==>"Date: 10/28/16, pt s/p LHC via right femoral artery - LHC showed severe stenosis of OSEGUERA to LAD graft. Transfer to tertiary care facility for high-risk intervention recommended. Dr. Hopkins currently arranging transfer. Nico SAHU NP / DR. HOPKINS". I did d/w Dr. Hopkins. Disposition: DC/TX-70 ANOTHER TYPE HLTHCARE Time spent for discharge: 34 mintues Core Measure Documentation - Palliative Care Palliative Care/ Comfort Measures: Not Applicable - Core Measures Any of the following diagnoses?: none - VTE Discharge Requirements Deep Vein Thrombosis/Pulmonary Embolism Present on Admission: No Has pt received <5 days of overlap therapy or INR<2.0: No Anticoagulant overlap therapy prescribed at discharge: No Contraindication No Overlap Therapy order at DC: Not Indicated Exam - Physical Exam Narrative exam: GEN: WDWN, NAD, AWAKE, ALERT, ORIENTATED x 3 HEENT: NCAT, PERRL, EOMI, OP CLEAR NECK: SUPPLE, NO THYROMEGALY, NO JVD, NO LAD CVS: RRR, NORMAL S1S2 LUNGS/CHEST: Expiratory wheezing bilaterally, NORMAL CHEST EXPANSION B, GOOD AIR ENTRY B ABD: SOFT, NTND, GBS, NO REBOUND OR GUARDING EXT/SKIN: NO SIGNIFICANT EDEMA OR RASH MSK: FROM X 4 EXTREMITIES NEURO: CN 2-12 GROSSLY INTACT, NO FOCAL DEFICITS PSY: CALM - Constitutional Vitals: Temp Pulse Resp BP Pulse Ox 98.0 F 53 L 19 101/55 98 10/28/16 05:43 10/28/16 10:00 10/28/16 06:07 10/28/16 05:43 10/28/16 10:00 Plan Activity: other (no strenous activites until cleared by Cardiology) Diet: low salt Follow up with: PRIMARY CAREMD [Primary Care Provider] - 3-5 Days
--- NOTE | 2016-10-28 13:31 | Cardiac Catherization Report ---
CLINICAL INFORMATION: The patient is a 46-year-old white gentleman with known coronary artery disease, history of aortocoronary bypass surgery many years ago, he apparently had a cardiac catheterization done a couple of years ago in [place]. His ejection fraction was low in the past, status post ICD insertion, was admitted last week with chest pain and was sent home when his nuclear imaging revealed infarction with no ischemia, ejection fraction 25%. However, he is coming back with recurrent chest pain. Scheduled for cardiac catheterization for definitive diagnosis and treatment. The patient has underlying mental illnesses and drug abuse and substances abuse. The patient was brought to the catheterization laboratory in a fasting condition. Right femoral artery area was thoroughly cleansed with chlorhexidine solution. Sterile drapes were applied. Local anesthesia was achieved using 2% Xylocaine. Right femoral artery puncture was made using micropuncture needle. Subsequently, a 5-Vietnamese sheath was introduced. A 5-Vietnamese multipurpose catheter was used to obtain the angiograms of the left ventricular using a power injector, angiograms of the left coronary artery in multiple views. Angiograms of the vein graft. Subsequently, a 5-Vietnamese mammary catheter was used to obtain the angiograms of the left internal mammary graft to the LAD and also angiograms of the right coronary artery. At the end of the procedure, catheter and sheath were removed. Good hemostasis was achieved with manual pressure. No untoward complications were noted. The patient was in sinus rhythm throughout the procedure. He is hemodynamically stable. Following findings were noted. HEMODYNAMICS: 1. Opening aortic pressure 91/50, left ventricular pressure 85/29. No gradient across the aortic valve. Estimated ejection fraction 15-20%, 2. Left ventriculogram done in [place] view using power injector showed markedly dilated left ventricle with severe diffuse hypokinesis. Ejection fraction 15-20% along with moderate mitral regurgitation noted. Right coronary artery dominant vessel is angiographically smooth and normal. It is filling through septal proximal LAD. 3. Left coronary artery, left main without significant disease. LAD is occluded at the ostium. There is a long stent, which is occluded proximally. Fairly large ramus is smooth and normal, similarly circumflex artery , nondominant vessel is angiographically smooth and normal. 4. The vein graft probably to the diagonal is occluded at the origin. 5. Left internal mammary graft to the LAD is patent; however, there is a long irregular probably total occlusion at the anastomotic site. However, is filling the LAD may be through collaterals. Also diagonal branch is seen filling on OSEGUERA injection. Distal LAD without significant disease. FINAL IMPRESSION: 1. Severe left ventricular dysfunction, ejection fraction 15-20% with moderate mitral regurgitation. 2. Occluded proximal LAD is supplied by a left internal mammary graft, which shows severe occlusion at the anastomotic site with filling of the distal LAD and diagonal branch. Otherwise, fairly large ramus branch, circumflex artery and dominant RCA without significant disease. The patient with severe LV dysfunction with recurrent chest pain and chronic occlusion of the proximal LAD and OSEGUERA graft showing severe stenosis at the anastomotic site with patent distal LAD noted. Considering his recurrent angina maybe consideration can be given for intervention of the chronic occlusion of the LAD of the [place] vessel versus through the left internal mammary graft, which is patent. The patient tolerated the procedure well. No untoward complications were noted. The patient has elevated LVED of 29. Aortic pressure is 91/50 and left ventricular pressure 85/29. [facility]# [id number] THOMAS/MISHA BURNETT
[2016-10-28] MEDS ORDERED: PROVENTIL IH PRN (13:52)
[2016-10-28 14:19] LABS: Alanine Aminotransferase 30 units/L (7-56); Albumin 3.6 g/dL (3.9-5); Albumin/Globulin Ratio 1.2 %; Alkaline Phosphatase 84 units/L (35-129); Anion Gap 17 mmol/L; BUN/Creatinine Ratio 13.75; Blood Urea Nitrogen 11 mg/dL (9-20); Calcium 8.5 mg/dL (8.4-10.2); Carbon Dioxide 21 mmol/L (22-30); Chloride 103.4 mmol/L (98-107); Glucose 88 mg/dL (75-100); Potassium 4.4 mmol/L (3.6-5.0); Sodium 137 mmol/L (137-145); Total Protein 6.6 g/dL (6.3-8.2)
--- NOTE | 2016-10-28 14:27 | Event Note ---
Date: 10/28/16 Pt to be tx to [facility] where Dr. Goode will be accepting physician. Transfer service to facilitate tx. Nico SAHU NP / DR. HOPKINS
[2016-10-28 14:35] VITALS: BP 91/61
== END 2016-10-28 15:04 | disposition short-term general hospital (02) | DRG 287 ==
LOC: ED 09:17 → 4A 13:53
PROVIDERS: ADMIT Family Medicine; ATTEND Internal Medicine
PROC: 4A023N7 Measurement of Cardiac Sampling and Pressure, Left Heart, Percutaneous Approach (ICD-10-PCS; principal; 2016-10-28)
PROC: B2111ZZ Fluoroscopy of Multiple Coronary Arteries using Low Osmolar Contrast (ICD-10-PCS; 2016-10-28)
PROC: B2151ZZ Fluoroscopy of Left Heart using Low Osmolar Contrast (ICD-10-PCS; 2016-10-28)
PROC: B2121ZZ Fluoroscopy of Single Coronary Artery Bypass Graft using Low Osmolar Contrast (ICD-10-PCS; 2016-10-28)
PROC: B2181ZZ Fluoroscopy of Left Internal Mammary Bypass Graft using Low Osmolar Contrast (ICD-10-PCS; 2016-10-28)
DX: T82.858A Stenosis of other vascular prosthetic devices, implants and grafts, initial encounter (principal); J44.1 Chronic obstructive pulmonary disease with (acute) exacerbation; I50.22 Chronic systolic (congestive) heart failure; I25.119 Atherosclerotic heart disease of native coronary artery with unspecified angina pectoris; I49.8 Other specified cardiac arrhythmias; D69.6 Thrombocytopenia, unspecified; F17.200 Nicotine dependence, unspecified, uncomplicated; Y83.8 Other surgical procedures as the cause of abnormal reaction of the patient, or of later complication, without mention of misadventure at the time of the procedure; F32.9 Major depressive disorder, single episode, unspecified; I25.5 Ischemic cardiomyopathy; E78.5 Hyperlipidemia, unspecified; F19.10 Other psychoactive substance abuse, uncomplicated; I34.0 Nonrheumatic mitral (valve) insufficiency; I11.0 Hypertensive heart disease with heart failure; Z82.49 Family history of ischemic heart disease and other diseases of the circulatory system; Z95.810 Presence of automatic (implantable) cardiac defibrillator; Z71.6 Tobacco abuse counseling; Y92.9 Unspecified place or not applicable; Y92.89 Other specified places as the place of occurrence of the external cause
CPT/HCPCS: 36415; 71020; 80048; 80053; 82550; 82553; 83735; 83880; 84100; 84484; 85007; 85025; 85027; 85610; 85730; 93005; 93010; 93459; 94640; 96374; 96375; A9270-GY; C1894; J0696; J1644; J1650; J2250; J2270; J2405; J3010; J7040; Q9967

== ENCOUNTER 2020-05-20 13:15 | Emergency (ER) | payer MEDICARE ==
[2020-05-20 13:31] VITALS: BP 121/85
--- NOTE | 2020-05-20 14:18 | Emergency Department Report ---
Abscess Boil HPI - HPI Chief Complaint: Skin/Abscess/Foreign Body Stated Complaint: RT ARM WOUND Time Seen by Provider: 05/20/20 13:41 Duration: 4 Days Location: Upper Extremity (right forearm) Severity: Moderate History: Yes Pain, Yes Purulent Drainage, Yes Previous History, No Fever, No Numbness, No Foreign Body, No Insect Bite HPI: 49-year-old male with a past medical history of coronary artery disease status post stent placement and bypass surgery and tobacco use presents to the ER today with complaints of abscess to his right forearm. Patient states that 4 days ago started off as a small bump but since then has increased in size. He does admit to manipulating the area with a needle. He states that he has drained some pus. He denies history of abscesses in the past. He denies history of MRSA. He denies any fever or chills. Home Medications: Home Medications Medication Instructions Recorded Confirmed Last Taken Sertraline [Zoloft] 100 mg PO QDAY 10/21/16 10/26/16 1 Day Ago ~10/25/16 risperiDONE [RisperDAL] 0.25 mg PO TID 10/21/16 10/26/16 1 Day Ago ~10/25/16 clonazePAM [KlonoPIN] 2 mg PO QHS 10/26/16 10/26/16 1 Day Ago ~10/25/16 Previous Rx's Medication Instructions Recorded Last Taken Type Albuterol Mdi (or & Nicu Only) 2 puff IH QID PRN #1 inha 10/23/16 Unknown Rx [ProAir HFA Inhaler] Aspirin [Adult Low Dose Aspirin EC] 81 mg PO DAILY #30 10/23/16 1 Day Ago Rx ~10/25/16 AtorvaSTATin [Lipitor] 40 mg PO QHS #30 tablet 10/23/16 1 Day Ago Rx ~10/25/16 Furosemide [Lasix TAB] 20 mg PO QDAY #30 tablet 10/23/16 1 Day Ago Rx ~10/25/16 Pantoprazole [Protonix TAB] 40 mg PO QDAY #30 tablet 10/23/16 1 Day Ago Rx ~10/25/16 lisinopriL [Zestril TAB] 2.5 mg PO QDAY #30 tablet 10/23/16 1 Day Ago Rx ~10/25/16 Acetaminophen/Codeine [Tylenol 1 tab PO Q4HR PRN #12 tablet 05/20/20 Unknown Rx /Codeine # 3 tab] Sulfamethoxazole/Trimethoprim 1 each PO BID #14 tablet 05/20/20 Unknown Rx [Bactrim DS TAB] Allergies/Adverse Reactions: Allergies Allergy/AdvReac Type Severity Reaction Status Date / Time methylprednisolone sodium AdvReac Unknown Verified 10/27/16 11:09 succinate [From Solu-Medrol] ED Review of Systems ROS: Stated complaint: RT ARM WOUND Other details as noted in HPI Comment: All other systems reviewed and negative Constitutional: denies: chills, fever ENT: denies: ear pain, throat pain Respiratory: denies: cough, shortness of breath, wheezing Cardiovascular: denies: chest pain, palpitations Endocrine: no symptoms reported Gastrointestinal: denies: abdominal pain, nausea, diarrhea Genitourinary: denies: urgency, dysuria Skin: rash Psychiatric: denies: anxiety, depression Hematological/Lymphatic: denies: easy bleeding, easy bruising ED Past Medical Hx - Past Medical History Hx Congestive Heart Failure: Yes Hx COPD: Yes - Surgical History Past Surgical History?: Yes Hx Open Heart Surgery: Yes (triple) Hx Internal Defibrillator: Yes Additional Surgical History: L knee - Social History Smoking Status: Current Every Day Smoker Substance Use Type: None - Medications Home Medications: Home Medications Medication Instructions Recorded Confirmed Last Taken Type Sertraline [Zoloft] 100 mg PO QDAY 10/21/16 10/26/16 1 Day Ago History ~10/25/16 risperiDONE [RisperDAL] 0.25 mg PO TID 10/21/16 10/26/16 1 Day Ago History ~10/25/16 Albuterol Mdi (or & Nicu Only) 2 puff IH QID PRN #1 inha 10/23/16 10/26/16 Unknown Rx [ProAir HFA Inhaler] Aspirin [Adult Low Dose Aspirin EC] 81 mg PO DAILY #30 10/23/16 10/26/16 1 Day Ago Rx ~10/25/16 AtorvaSTATin [Lipitor] 40 mg PO QHS #30 tablet 10/23/16 10/26/16 1 Day Ago Rx ~10/25/16 Furosemide [Lasix TAB] 20 mg PO QDAY #30 tablet 10/23/16 10/26/16 1 Day Ago Rx ~10/25/16 Pantoprazole [Protonix TAB] 40 mg PO QDAY #30 tablet 10/23/16 10/26/16 1 Day Ago Rx ~10/25/16 lisinopriL [Zestril TAB] 2.5 mg PO QDAY #30 tablet 10/23/16 10/26/16 1 Day Ago Rx ~10/25/16 clonazePAM [KlonoPIN] 2 mg PO QHS 10/26/16 10/26/16 1 Day Ago History ~10/25/16 Acetaminophen/Codeine [Tylenol 1 tab PO Q4HR PRN #12 tablet 05/20/20 Unknown Rx /Codeine # 3 tab] Sulfamethoxazole/Trimethoprim 1 each PO BID #14 tablet 05/20/20 Unknown Rx [Bactrim DS TAB] ED Abscess Boil Physical Exam - Exam General: Vital signs noted. No distress. Alert and acting appropriately. Exam: Yes Tenderness (Right forearm around the abscess), Yes Surrounding Cellulites/Erythema (Mild to mod around abscess which is located mid radial aspect of right forearm with mild spreading to volar mid forearm), No Fluctuance, No Lymphangitis, No Crepitation, No Normal Neurologic Exam, No Normal Circulation ED Course Vital Signs 05/20/20 13:27 Temperature 98.1 F Pulse Rate 101 H Respiratory 18 Rate Blood Pressure 121/85 O2 Sat by Pulse 96 Oximetry Critical care attestation.: If time is entered above; I have spent that time in minutes in the direct care of this critically ill patient, excluding procedure time. ED Disposition Clinical Impression: Abscess of forearm, right Disposition: DC-01 TO HOME OR SELFCARE Is pt being admited?: No Does the pt Need Aspirin: No Condition: Stable Instructions: Skin Abscess, [id number] Additional Instructions: Take the antibiotics as prescribed. Take the pain medication as prescribed. You can apply warm compresses over the area. Keep it clean with soap and water you can apply a small amount of Neosporin after each cleaning. Do not use peroxide or alcohol. I recommend normal manipulation with needles to the area. Return to the ER if your symptoms changes or worsens in any way. Prescriptions: Sulfamethoxazole/Trimethoprim [Bactrim DS TAB] 1 each PO BID #14 tablet Acetaminophen/Codeine [Tylenol /Codeine # 3 tab] 1 tab PO Q4HR PRN #12 tablet PRN Reason: Pain Referrals: MARIELENA ERNST MD [Staff Physician] - 3-5 Days Time of Disposition: 14:21
== END 2020-05-20 14:52 | disposition home or self-care (01) ==
LOC: ED 13:15
DX: L02.413 Cutaneous abscess of right upper limb (principal); J44.9 Chronic obstructive pulmonary disease, unspecified; I50.9 Heart failure, unspecified; F17.200 Nicotine dependence, unspecified, uncomplicated; Z98.890 Other specified postprocedural states; Z79.899 Other long term (current) drug therapy; Z88.8 Allergy status to other drugs, medicaments and biological substances
CPT/HCPCS: 99282